=== PATIENT | female | born 1960 | race Caucasian/White ===

== ENCOUNTER 2022-02-19 21:32 | Inpatient (IN) | payer OTHER, SELFPAY ==
--- NOTE | ~2022-02-19 | XR_ITS ---
EXAMINATION: XR CHEST CLINICAL INFORMATION: TIA COMPARISON: None TECHNIQUE: Frontal view of the chest was obtained. FINDINGS: No significant abnormality is noted involving the heart, lungs, mediastinum, bony thorax or soft tissues. XR/XR chest 1V IMPRESSION: Unremarkable examination.
--- NOTE | ~2022-02-19 | MR_ITS ---
EXAMINATION: MR BRAIN WITHOUT CONTRAST CLINICAL INFORMATION: Stroke. COMPARISON: CT head from 02/19/2022. TECHNIQUE: MRI of the brain was obtained using routine sequences without contrast. FINDINGS: Potential punctate focus of restricted diffusion within the posterior limb of the right internal capsule. No additional restricted diffusion. No evidence of acute or chronic hemorrhagic products on heme-sensitive imaging. Scattered periventricular, deep white matter, and brainstem T2 FLAIR hyperintensities consistent with moderate underlying microangiopathy. Etat crible of the basal ganglia and brainstem. Proportional prominence of the ventricles and sulcal spaces without evidence of obstructive hydrocephalus. No abnormal mass effect. No midline shift. Normal appearance of the pituitary gland. Normal positioning of the cerebellar tonsils. Normal arterial and venous vascular flow voids are present. Normal, homogeneous marrow signal. Mild mucosal thickening of the paranasal sinuses. No signal abnormalities within the mastoids. MR/MR head/brain wo con IMPRESSION: 1. Potential punctate acute infarct within the posterior limb of the right internal capsule. Recommend correlation with laterality of symptoms. 2. No additional acute intracranial abnormalities. 3. Moderate underlying microangiopathy and generalized cerebral volume loss.
--- NOTE | ~2022-02-19 | CT_ITS ---
EXAMINATION: CT HEAD WITHOUT CONTRAST (STROKE PROTOCOL) CLINICAL INFORMATION: Stroke protocol. Transient ischemic attack. COMPARISON: None TECHNIQUE: Contiguous axial imaging was performed from the skull base to vertex without intravenous administration of contrast. This CT examination was performed using dose optimization techniques as appropriate, variously including the following: *Automated exposure control *Adjustment of mA and/or kV according to patient size (this includes techniques or standardized protocols for targeted exams where dose is matched to indication/reason for exam; i.e. extremities or head) *Use of iterative reconstruction technique DLP: 624 mGy-cm FINDINGS: No intracranial hemorrhage, extra-axial fluid collections, focal mass effect or midline shift. The abarca-white matter differentiation is maintained. No evidence of an acute major vascular territory infarction. There are relatively symmetric hypodensities of the basal ganglia that are likely due to widened perivascular spaces (i.e., etat crible). There is no significant parenchymal volume loss; no hydrocephalus. The brainstem and cerebellum are unremarkable. The visualized paranasal sinuses, mastoid air cells and middle ear cavities are well aerated. The orbits, globes and temporomandibular joints are unremarkable. CT/CT head for stroke IMPRESSION: No acute intracranial pathology. This critical result was discussed with Ladonna Casas at 10:08 PM on 02/19/2022. It was ascertained that the content and urgency of the report was understood at the time of direct communication.
--- NOTE | ~2022-02-19 | US_ITS ---
EXAMINATION: US EXTRACRANIAL CAROTID DUPLEX, BILATERAL CLINICAL INFORMATION: TIA COMPARISON: None TECHNIQUE: Real-time ultrasound and Doppler techniques (integrating B-mode 2-D vascular images, Doppler spectral analysis and color-flow Doppler imaging) were utilized to interrogate the extracranial carotid arteries, the vertebral arteries and proximal subclavian arteries bilaterally. The degree of stenosis is determined by criteria similar to NASCET. FINDINGS: Right Side: 1. There is no significant atherosclerotic plaque seen in the bifurcation/proximal ICA region. 2. The common carotid artery PSV proximally is 93 cm/s and distally 73 cm/s. 3. The proximal internal carotid artery velocities are 85 cm/s systolic and 31 cm/s diastolic. 4. The proximal external carotid artery PSV is 83 cm/s. 5. The vertebral artery shows antegrade flow. 6. The subclavian artery waveforms are normal. Left Side: 1. There is no significant atherosclerotic plaque seen in the bifurcation/proximal ICA region. 2. The common carotid artery PSV proximally is 117 cm/s and distally 70 cm/s. 3. The proximal internal carotid artery velocities are 75 cm/s systolic and 25 cm/s diastolic. 4. The proximal external carotid artery PSV is 88 cm/s. 5. The vertebral artery shows antegrade flow. 6. The subclavian artery waveforms are normal. US/US carotid duplex BI IMPRESSION: 1. RIGHT: Normal right internal carotid artery without atherosclerotic plaque or hemodynamically significant stenosis. 2. LEFT: Normal left internal carotid artery without atherosclerotic plaque or hemodynamically significant stenosis.
--- NOTE | ~2022-02-19 | FL_ITS ---
EXAMINATION: FL BARIUM SWALLOW CLINICAL INFORMATION: Dysphagia COMPARISON: None TECHNIQUE: Barium swallow examination is performed using fluoroscopic evaluation in addition to multiple fluoroscopic spot views. The patient is imaged both upright and prone and using both thick and thin sulfate along with effervescent granules. Barium tablet was also administered. Fluoroscopy time: 0.9 minutes DAP: 2.5 Gycm2 Images: 56 FINDINGS: The swallowing mechanism is normal. No aspiration or penetration is seen. There is a small sliding-type paraesophageal hernia. There also appears to be a small sliding-type hiatal hernia. There is mild gastroesophageal reflux. There is temporary stasis of the barium tablet at the GE junction. There is question of mild distal esophagitis. No mass or stricture is seen. Esophageal motility is normal. FL/FL barium swallow IMPRESSION: Small sliding-type paraesophageal and hiatal hernias. Gastroesophageal reflux. Question mild distal esophagitis.
--- NOTE | 2022-02-19 21:42 | ECG_ITS ---
Test Reason : STROKE Blood Pressure : / mmHG Vent. Rate : 092 BPM Atrial Rate : 092 BPM P-R Int : 130 ms QRS Dur : 076 ms QT Int : 350 ms P-R-T Axes : 040 030 035 degrees QTc Int : 432 ms Normal sinus rhythm Normal ECG No previous ECGs available Referred By: Ladonna Casas Electronically Signed By:ALDA COBB MD
[2022-02-19 21:43] LABS: Prothrombin Time Whole Bld POC 12.9 sec (11.1-13.5); ~PT, ~INR - Anti Coag Clinic 1.1 (0.9-1.1)
--- NOTE | 2022-02-19 21:43 | ED_ITS ---
HPI - Neuro Symptoms/Deficit General Chief Complaint: Stroke Stated Complaint: stroke alert Time Seen by Provider: 02/19/22 21:40 Source: patient and EMS Mode of arrival: EMS Limitations: no limitations History of Present Illness HPI Narrative: 61-year-old female came in by EMS as a stroke alert. Patient was noticed by her having a right-sided facial droop and was feeling numbness in the right hand, patient also felt that her speech is slightly off but still able to express herself and find the word or right patient been also suffering of dry mouth. noticed right facial droop around 20:15 before arrival to the hospital, patient otherwise do not sustain any weakness except numbness to the tip of her right hand fingers no numbness, no headache, no dizziness, no double vision, no blurry vision. Patient feels her symptoms has resolved with no facial droop anymore, but still feel her mouth is dry that is why her speech is off. 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 Patient appear anxious in the ED, decline chronic use of alcohol only use at occasions. Related Data Allergies Allergy/AdvReac Type Severity Reaction Status Date / Time sulfamethoxazole Allergy Intermediate rash Verified 02/19/22 21:41 [From Bactrim] trimethoprim [From Bactrim] Allergy Intermediate rash Verified 02/19/22 21:41 Review of Systems Review of Systems: All other systems are reviewed and are negative Constitutional: Reports as per HPI and Reports no additional constitutional complaints Eyes: Reports as per HPI and Reports no additional eye complaints Reports system reviewed and no additional complaints, except as documented Cardiovascular: Reports as per HPI and Reports no additional cardiovascular complaints Respiratory: Reports as per HPI and Reports no additional respiratory complaints Gastrointestinal: Reports as per HPI and Reports no additional gastrointestinal complaints Genitourinary: Reports no additional female genitourinary complaints Musculoskeletal: Reports no additional musculoskeletal complaints Skin/Breast: Reports system reviewed and no additional complaints, except as docu Psychiatric: Reports no additional psychiatric complaints Endocrine: Reports no additional endocrine complaints Hematologic/Lymphatic: Reports no additional hematologic/lymphatic complaints Allergic/Immunologic: Reports no additional allergic/immunologic complaints Reports system reviewed and no additional complaints, except as documented and Reports Abnormal speech present [facility] Social History Social History Alcohol intake: current Alcohol intake frequency: holidays/special occasions only Alcohol type: wine Smoked in Last 30 Days: No Use of substances other than those prescribed or required for medical reasons: No Advance Directives: No Physical Exam Vital Signs: Vital Signs: Last Vital Signs Temp 98.8 F 02/19/22 22:03 Pulse 99 02/19/22 22:52 Resp 19 02/19/22 22:52 BP 135/74 02/19/22 22:52 Pulse Ox 100 02/19/22 22:52 O2 Del Method 02/19/22 22:52 BMI result Body Mass Index 25.7 Vital signs have been reviewed as appeared to be correct. Blood pressure normal. Heart rate normal. Respiration rate normal. Temperature normal. Oxygen saturation normal. Appearance: Alert. Oriented X3. No acute distress. Head: Normal external exam. Normocephalic. Atraumatic. No Garrido signs noted. No raccoon eyes noted Eyes: PERRLA. EOMI. Conjunctiva and sclera normal. Eyelids normal. ENT: TM's Normal. Pharynx normal. Uvula midline. Moist mucous membranes. No trismus noted. No drooling noted. No muffled voice noted. Neck: Normal inspection. Neck supple. FROM. No adenopathy. Thyroid Normal. No meningeal signs. No neck mass noted. CVS: Normal heart rate and rhythm. Heart sound normal. No murmurs noted. Pulses normal throughout. Respiratory: No respiratory distress. Painless inspiration. Breath sounds jaylon l. No wheezes/rales/rhonchi noted. Chest nontender. No accessory muscle usage noted or decreased air movement noted. Abdomen: Soft and nontender. Bowel sounds normal in all 4 quadrants. No distention noted. No organomegaly noted. No visible injury noted. Back: No CVA tenderness. Full range of motion noted. Skin: Skin warm and dry. Normal skin color. Normal skin turgor. No rashes/lesions/lacerations noted. Extremities: No lower extremity edema. Extremities exhibit normal range of motion. Extremities nontender. Neuro: Oriented X 3. Cranial nerve exam: II-XII are grossly intact No motor deficit. No sensory deficit. Reflexes normal. Course Course Course Narrative: 61-year-old female presented with right facial droop and aphasia witnessed by her symptoms are all resolved on arrival to the ED. patient has been complaining of her mouth being dry which could be secondary to the chronic dysphagia that the patient had workup for at [facility] and schedule for further upper endoscopy in 2 months which can cause difficulty speaking but will not explain the right facial droop that was seen by her and result now. Will admit the patient for further neurological evaluation. MDM - Neuro Symptoms/Deficit Lab Data Attestation: I reviewed the patient's lab results. Result diagrams: 02/19/22 21:58 02/19/22 21:58 Labs: Lab Results 02/19/22 02/19/22 02/19/22 Range/Units 21:36 21:36 21:58 WBC 3.4 L (4.8-10.8) X10*3/uL RBC 4.42 (4.20-5.50) X10*6/uL Hgb 13.7 (12.0-16.0) g/dl Hct 39.0 (37.0-47.0) % MCV 88.2 (80.0-98.0) fL MCH 31.0 (27.0-33.0) pg MCHC 35.1 H (31.0-35.0) g/dl RDW 11.7 (11.0-16.0) % Plt Count 245 (160-400) X10*3/uL MPV 10.0 (9.4-12.3) fL Immature Gran % (Auto) 0.0 (0.0-0.4) % Neut % (Auto) 47.0 (45-73) % Lymph % (Auto) 42.2 H (20-40) % [place]man % (Auto) 7.3 (2-11) % Eos % (Auto) 3.2 (0-4) % Baso % (Auto) 0.3 (0-2) % Lymph # (Auto) 1.5 (1.2-4.9) X10*3/uL [place]utsman # (Auto) 0.3 (0.1-1.2) X10*3/uL Eos # (Auto) 0.1 (0.0-0.4) X10*3/uL Baso # (Auto) 0.0 (0.0-0.2) X10*3/uL Abs Immat Gran (auto) 0.00 (0.00-0.03) X10*3/uL Absolute Neuts (auto) 1.6 L (2.0-8.3) x10*3/uL Absolute Nucleated RBC 0.000 (0.0-0.012) X10*3/uL Nucleated RBC % (auto) 0.0 (0.0-0.2) /100WBC PT (10.0-13.1) SEC Whole Blood PT 12.9 (11.1-13.5) sec INR (0.9-1.1) Whole Blood INR 1.1 (0.9-1.1) APTT (26.0-36.4) SEC Sodium (135-145) mmol/L Potassium (3.3-5.1) mmol/L Chloride (96-108) mmol/L Carbon Dioxide (22-29) mmol/L Anion Gap (12-20) BUN (9-16) mg/dL Creatinine (0.5-1.4) mg/dL Estim Creat Clear Calc Estimated GFR POC Glucose 98 (60-115) mg/dL Random Glucose (60-115) mg/dL Calcium (8.4-10.2) mg/dL Total Creatine Kinase (26-140) U/L Troponin I High Sens (<3.5-17.0) ng/L COVID-19 (SAEID) (Negative) COVID-19 Clin Com 02/19/22 02/19/22 02/19/22 Range/Units 21:58 21:58 21:58 WBC (4.8-10.8) X10*3/uL RBC (4.20-5.50) X10*6/uL Hgb (12.0-16.0) g/dl Hct (37.0-47.0) % MCV (80.0-98.0) fL MCH (27.0-33.0) pg MCHC (31.0-35.0) g/dl RDW (11.0-16.0) % Plt Count (160-400) X10*3/uL MPV (9.4-12.3) fL Immature Gran % (Auto) (0.0-0.4) % Neut % (Auto) (45-73) % Lymph % (Auto) (20-40) % Stutsman % (Auto) (2-11) % Eos % (Auto) (0-4) % Baso % (Auto) (0-2) % Lymph # (Auto) (1.2-4.9) X10*3/uL [place] # (Auto) (0.1-1.2) X10*3/uL Eos # (Auto) (0.0-0.4) X10*3/uL Baso # (Auto) (0.0-0.2) X10*3/uL Abs Immat Gran (auto) (0.00-0.03) X10*3/uL Absolute Neuts (auto) (2.0-8.3) x10*3/uL Absolute Nucleated RBC (0.0-0.012) X10*3/uL Nucleated RBC % (auto) (0.0-0.2) /100WBC PT 11.4 (10.0-13.1) SEC Whole Blood PT (11.1-13.5) sec INR 1.0 (0.9-1.1) Whole Blood INR (0.9-1.1) APTT 40.8 H (26.0-36.4) SEC Sodium 141 (135-145) mmol/L Potassium 3.9 (3.3-5.1) mmol/L Chloride 108 (96-108) mmol/L Carbon Dioxide 21 L (22-29) mmol/L Anion Gap 16 (12-20) BUN 11 (9-16) mg/dL Creatinine 0.88 (0.5-1.4) mg/dL Estim Creat Clear Calc 63.6 Estimated GFR > 60 POC Glucose (60-115) mg/dL Random Glucose 125 H (60-115) mg/dL Calcium 8.8 (8.4-10.2) mg/dL Total Creatine Kinase 30 (26-140) U/L Troponin I High Sens < 3.5 (<3.5-17.0) ng/L COVID-19 (SAEID) (Negative) COVID-19 Clin Com 02/19/22 Range/Units 21:58 WBC (4.8-10.8) X10*3/uL RBC (4.20-5.50) X10*6/uL Hgb (12.0-16.0) g/dl Hct (37.0-47.0) % MCV (80.0-98.0) fL MCH (27.0-33.0) pg MCHC (31.0-35.0) g/dl RDW (11.0-16.0) % Plt Count (160-400) X10*3/uL MPV (9.4-12.3) fL Immature Gran % (Auto) (0.0-0.4) % Neut % (Auto) (45-73) % Lymph % (Auto) (20-40) % [place]utsman % (Auto) (2-11) % Eos % (Auto) (0-4) % Baso % (Auto) (0-2) % Lymph # (Auto) (1.2-4.9) X10*3/uL [place] # (Auto) (0.1-1.2) X10*3/uL Eos # (Auto) (0.0-0.4) X10*3/uL Baso # (Auto) (0.0-0.2) X10*3/uL Abs Immat Gran (auto) (0.00-0.03) X10*3/uL Absolute Neuts (auto) (2.0-8.3) x10*3/uL Absolute Nucleated RBC (0.0-0.012) X10*3/uL Nucleated RBC % (auto) (0.0-0.2) /100WBC PT (10.0-13.1) SEC Whole Blood PT (11.1-13.5) sec INR (0.9-1.1) Whole Blood INR (0.9-1.1) APTT (26.0-36.4) SEC Sodium (135-145) mmol/L Potassium (3.3-5.1) mmol/L Chloride (96-108) mmol/L Carbon Dioxide (22-29) mmol/L Anion Gap (12-20) BUN (9-16) mg/dL Creatinine (0.5-1.4) mg/dL Estim Creat Clear Calc Estimated GFR POC Glucose (60-115) mg/dL Random Glucose (60-115) mg/dL Calcium (8.4-10.2) mg/dL Total Creatine Kinase (26-140) U/L Troponin I High Sens (<3.5-17.0) ng/L COVID-19 (SAEID) Negative (Negative) COVID-19 Clin Com See Note Imaging Data Chest x-ray: Attestation: I personally reviewed and interpreted this imaging study as follows: Radiologist's impression: Unremarkable examination. CT scan - head: Attestation: I personally reviewed and interpreted this imaging study as follows: Radiologist's impression: No acute intracranial pathology. ECG Data Attestation: I personally reviewed and interpreted this ECG as follows: Interpretation: Normal sinus rhythm at 92 beats per minute, normal axis deviation, normal intervals, no ST-T changes. NIH Stroke Scale Level of Consciousness: Alert Level of Consciousness Questions: Answers both questions correctly Level of Consciousness Commands: Performs both tasks correctly Best Gaze: Normal Visual: No visual loss Facial Palsy: Normal Motor Arm (Right): No drift Motor Arm (Left): No drift Motor Leg (Right): No drift Motor Leg (Left): No drift Limb Ataxia: Absent Sensory: Normal Best Language: No aphasia Dysarthia: Normal Extinction and Inattention: No abnormality Score: 0 Discharge Plan Discharge Clinical Impression: Transient cerebral ischemia Patient Disposition: Admitted As Inpatient
[2022-02-19 21:44] VITALS: BMI 25.7
[2022-02-19 21:44] LABS: Glucose, Whole Blood 98 mg/dL (60-115)
[2022-02-19 22:03] VITALS: BP 165/97; PULSE 97; RESP 25; TEMP 37.1; O2SAT 100
[2022-02-19 22:04] LABS: MANUAL DIFF FLAG NO
[2022-02-19 22:06] LABS: Basophils Percent Auto 0.3 % (0-2); Eosinophils Absolute Auto 0.1 X10*3/uL (0.0-0.4); Eosinophils Percent Auto 3.2 % (0-4); Hemoglobin 13.7 g/dl (12.0-16.0); Lymphocytes Absolute Auto 1.5 X10*3/uL (1.2-4.9); Lymphocytes Percent Auto 42.2 % (20-40); Mean Corpuscular HGB Conc 35.1 g/dl (31.0-35.0); Mean Corpuscular Volume 88.2 fL (80.0-98.0); Monocytes Absolute Auto 0.3 X10*3/uL (0.1-1.2); Monocytes Percent Auto 7.3 % (2-11); Neutrophils Absolute Auto 1.6 x10*3/uL (2.0-8.3); Platelet Count 245 X10*3/uL (160-400); Red Blood Count 4.42 X10*6/uL (4.20-5.50); Red Cell Distribution Width 11.7 % (11.0-16.0); White Blood Count 3.4 X10*3/uL (4.8-10.8)
[2022-02-19 22:11] LABS: Prothrombin Time 11.4 SEC (10.0-13.1)
[2022-02-19 22:14] LABS: Partial Thromboplastin Time 40.8 SEC (26.0-36.4)
[2022-02-19 22:19] LABS: Anion Gap 16 (12-20); Blood Urea Nitrogen 11 mg/dL (9-16); Calcium 8.8 mg/dL (8.4-10.2); Carbon Dioxide 21 mmol/L (22-29); Chloride 108 mmol/L (96-108); Creatinine Clr Calc Pharmacy 63.6; Estimated Glomerular Filt Rate > 60; Glucose Random 125 mg/dL (60-115); Potassium 3.9 mmol/L (3.3-5.1); Sodium 141 mmol/L (135-145)
[2022-02-19 22:20] LABS: COVID-19 Test Negative (Negative)
[2022-02-19 22:25] LABS: Troponin-I High Sensitivity < 3.5 ng/L (<3.5-17.0)
[2022-02-19 22:32] LABS: Stroke Lab Use COMPLETE
--- OUTSIDE RECORDS SUMMARY | 2022-02-19 22:35 | XMS_ITS | Continuity of Care Document ---
:1960 Author Organization [facility] Address [address] [place] [address]- Care Team Providers Name Role Phone Conrado Baldwin MD Primary Care Physician Encounter [facility] Date(s): 03/27/20 - 04/26/20 [facility] [address] [place], [place] [address] Allergies, Adverse Reactions, Alerts Substance Reaction Severity Status pravastatin abd epig pain Active Bactrim nausea Active Immunizations Given and Recorded Vaccine Date Status Refusal Reason influenza virus vaccine, inactivated 02/24/13 Given Tet/Diphth/Acel, Pertussis (oldterm) 02/24/13 Given Hepatitis B Vaccine (old term)1 01/05/06 Given tetanus-diphtheria toxoids (Td) 01/05/06 Given 1Admin Note: PT RECIEVED SERIES AT WORK Medications Calcium (as carbonate)-vitamin D 500 mg-400 intl units oral tablet, chewable 1 tablet, Chew, Daily, # 60 tablet, 0 Refills, Maintenance, 06/27/11 10:07:37, Chew Tablet Start Date: 06/27/11 Status: Orderedlisinopril 5 mg oral tablet 5 mg, 1, tablet, By Mouth, Daily, # 90 tablet, Refills 3, Tot. Refills 3, Maintenance, 04/15/20 14:01:00 EST, Route to Pharmacy Electronically, [facility]/pharmacy #[id number], Pharmacy Never Received Script From 06-11-2015, 166, cm, 06/09/19 8:24:00 EST, Height Start Date: 04/15/20 Status: OrderedmetroNIDAZOLE 0.75% topical cream 1 application, Topically, 2 times a day, # 45 Gm, 3 Refills, Maintenance, 03/29/20 10:37:00 EST, Cream, [facility]/pharmacy [facility][id number], 1 application Topically 2 times a day, 166, cm, 06/09/19 8:24:00 EST, Height Start Date: 03/29/20 Status: Ordered Problem List Condition Effective Dates Status Health Status Informant Acne rosacea(Confirmed) Active Acne rosacea, erythematous 05/06/13 Active telangiectatic type(Confirmed) Narrow angle glaucoma Active suspect(Confirmed) Macular degeneration(Confirmed) Active Depression(Confirmed) Active FH: Cancer - * breast: mother Active grandmothers two maternal couslins(Confirmed) FH: Depression-both parents(Confirmed) Active FH: Diabetes mellitus P 02/21/08 Active grandfather(Confirmed) FH: Hypertension(Confirmed) Active Hyperlipidemia LDL goal 05/06/13 Active <130(Confirmed) Hypertension(Confirmed) 02/24/13 Active depression(Confirmed) Active Repair of inguinal Active hernia-left(Confirmed) Social History Social History Type Response Smoking Status Never smoker entered on: 05/06/13 Sex
--- OUTSIDE RECORDS SUMMARY | 2022-02-19 22:35 | XMS_ITS | Continuity of Care Document ---
:1960 Author Organization [facility] Address [address] [place] [address]- Care Team Providers Name Role Phone Conrado Baldwin MD Primary Care Physician Encounter [facility] Date(s): 10/23/21 - 10/30/21 [facility] [address] [place] [address]- Attending Physician: Conrado Baldwin MD Allergies, Adverse Reactions, Alerts Substance Reaction Severity Status pravastatin abd epig pain Active Bactrim nausea Active Immunizations Given and Recorded Vaccine Date Status Refusal Reason tetanus/diphtheria/pertussis, acel(Tdap)1 04/02/21 Given SARS-CoV-2 (COVID-19) mRNA BNT-162b2 vac 03/10/21 Recorde d SARS-CoV-2 (COVID-19) mRNA BNT-162b2 vac 08/08/20 Given SARS-CoV-2 (COVID-19) mRNA BNT-162b2 vac 07/18/20 Given influenza virus vaccine, inactivated 02/07/21 Recorded influenza virus vaccine, inactivated 02/24/13 Given Tet/Diphth/Acel, Pertussis (oldterm) 02/24/13 Given Hepatitis B Vaccine (old term)2 01/05/06 Given tetanus-diphtheria toxoids (Td) 01/05/06 Given 1Result Comment: [id number] Note: PT RECIEVED SERIES AT WORK Medications Calcium (as carbonate)-vitamin D 500 mg-400 intl units oral tablet, chewable 1 tablet, Chew, Daily, # 60 tablet, 0 Refills, Maintenance, 06/27/11 10:07:37, Chew Tablet Start Date: 06/27/11 Status: Orderedcyanocobalamin 1000 mcg oral tablet 1,000 mcg, 1, tablet, By Mouth, Daily, # 30 tablet, Refills 0, Tot. Refills 0, Maintenance, 10/24/2221:22:00 EDT, Do Not Route, Partial fill upon patient request if the prescription is for a schedule II opioid drug. Start Date: 10/24/21 Status: Orderedlisinopril 5 mg oral tablet 5 mg, 1, tablet, By Mouth, Daily, # 90 tablet, Refills 3, Tot. Refills 3, Maintenance, 04/02/21 15:18:00 EST, [id number] Never Received Script From 06-11-2015, 166, cm, 04/02/21 14:58:00 EST, Height Start Date: 04/02/21 Status: OrderedmetroNIDAZOLE 0.75% topical cream 1 application, Topically, 2 times a day, # 45 Gm, 3 Refills, Maintenance, 04/02/21 15:18:00 EST, Cream, [facility]/pharmacy #[id number], 1 application Topically 2 times a day, 166, cm, 04/02/21 14:58:00 EST, Height Start Date: 04/02/21 Status: Orderedmirtazapine 15 mg oral tablet 1 tablet = 15 mg, By Mouth, Daily at bedtime, # 30 tablet, 5 Refills, Maintenance, 10/23/21 13:44:00EDT, Tablet, [facility]/pharmacy #[id number], Partial fill upon patient request if the prescription is for a schedule II opioid drug., 162.6, cm, 10/08/21 10:31:00... Start Date: 10/23/21 Status: Orderedraloxifene 60 mg oral tablet 1 tablet = 60 mg, By Mouth, Daily, # 30 tablet, 3 Refills, Maintenance, 08/07/21 13:28:00 EDT, Tablet, [facility]/pharmacy #[id number], Partial fill upon patient request if the prescription is for a schedule II opioid drug., 168, cm, 08/07/21 13:04:00 EDT, Height,... 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) Narrow angle glaucoma Active suspect(Confirmed) B12 deficiency(Confirmed) Active Macular degeneration(Confirmed) Active Depression(Confirmed) Active Family history of breast cancer in Active mother, sister, grandmothers two maternal couslins(Confirmed) FH: Depression-both parents(Confirmed) Active FH: Diabetes mellitus P 02/21/08 Active grandfather(Confirmed) FH: Hypertension(Confirmed) Active Personal history of colonic 10/09/21 Active polyps(Confirmed) Hyperlipidemia LDL goal 05/06/13 Active <130(Confirmed) Hypertension(Confirmed) 02/24/13 Active Anxiety and depression(Confirmed) Active depression(Confirmed) Active Repair of inguinal Active hernia-left(Confirmed) Social History Social History Type Response Smoking Status Never smoker entered on: 05/06/13 Sex
--- OUTSIDE RECORDS SUMMARY | 2022-02-19 22:35 | XMS_ITS | Continuity of Care Document ---
:1960 Author Organization [facility] Address [address] [place] [address]- Care Team Providers Name Role Phone Nicolasa DAVENPORT, Conrado Cleary Primary Care Physician Encounter [facility] Date(s): 10/09/21 - 11/08/21 [facility] [address] [place], [place] [address] Allergies, Adverse Reactions, Alerts Substance Reaction [...] tetanus-diphtheria toxoids (Td) 01/05/06 Given 1Result Comment: [id number] Note: PT RECIEVED SERIES AT WORK Medications [...] 04/02/21 15:18:00 EST, Route to Pharmacy Electronically, [facility]/pharmacy #[id number], Pharmacy Never Received Script From 06-11-2015, 166, cm, 04/02/21 14:58:00 EST, Height Start Date: 04/02/21 Status: OrderedmetroNIDAZOLE 0.75% topical cream 1 application, Topically, 2 times a day, # 45 Gm, 3 Refills, Maintenance, 04/02/21 15:18:00 EST, Cream, [facility]/pharmacy #[id number], 1 application Topically 2 times a day, 166, cm, 04/02/21 14:58:00 EST, Height Start Date: 04/02/21 Status: Orderedmirtazapine 15 mg oral tablet 1 tablet = 15 mg, By Mouth, Daily at bedtime, # 30 tablet, 5 Refills, Maintenance, 10/23/21 13:44:00EDT, Tablet, [facility]/pharmacy #[id number], Partial fill upon patient request if the prescription is for a schedule II opioid drug., 162.6, cm, 10/08/21 10:31:00... Start Date: 10/23/21 Status: Orderedraloxifene 60 mg oral tablet 1 tablet = 60 mg, By Mouth, Daily, # 30 tablet, 3 Refills, Maintenance, 08/07/21 13:28:00 EDT, Tablet, [facility]/pharmacy #[id number], Partial fill upon patient request if [...]
--- OUTSIDE RECORDS SUMMARY | 2022-02-19 22:35 | XMS_ITS | Continuity of Care Document ---
:1960 Author Organization [facility] Address [address] [place] [address]- Care Team Providers Name Role Phone Conrado Baldwin MD Primary Care Physician Encounter [facility] Date(s): 06/12/20 - 07/12/20 [facility] [address] [place] [address]- Attending Physician: Admtr, Kody Admitting Physician: Admtr, [id number] Referring Physician: Admtr, [id number] Allergies, Adverse Reactions, Alerts Substance Reaction Severity [...] 04/15/20 14:01:00 EST, Route to Pharmacy Electronically, [facility]/pharmacy #[id number], Pharmacy Never Received Script From 06-11-2015, 166, [...]
--- OUTSIDE RECORDS SUMMARY | 2022-02-19 22:35 | XMS_ITS | Continuity of Care Document ---
:1960 Author Organization [facility] Address [address] [place] [address]- Care Team Providers Name Role Phone Conrado Baldwin MD Primary Care Physician Encounter [facility] Date(s): 04/11/21 - 05/11/21 [facility] [address] [place] [address] [place] Allergies, Adverse Reactions, Alerts Substance Reaction Severity [...] tetanus-diphtheria toxoids (Td) 01/05/06 Given 1Result Comment: [id number] Note: PT RECIEVED SERIES AT WORK Medications [...] 04/02/21 15:18:00 EST, Route to Pharmacy Electronically, [facility]/pharmacy #[id number], Pharmacy Never Received Script From 06-11-2015, 166, cm, 04/02/21 14:58:00 EST, Height Start Date: 04/02/21 Status: OrderedmetroNIDAZOLE 0.75% topical cream 1 application, Topically, 2 times a day, # 45 Gm, 3 Refills, Maintenance, 04/02/21 15:18:00 EST, Cream, [facility]/pharmacy #[id number], 1 application Topically 2 times a day, 166, cm, 04/02/21 14:58:00 EST, Height Start Date: 04/02/21 Status: OrderedNuLYTELY with Flavor Packs oral powder for reconstitution 240 mL, By Mouth, Every 10 minutes, Split prep method CAN SUBSTITUTE WITH ANY PEG 3350 SOLUTION AVAILABLE, # 1 each, 0 Refills, Acute 10/08/21 8:00:00 EDT, 10/07/21 17:00:00 EDT, REC Powder, [facility]/pharmacy #[id number], test date 10/08/21, 240 mL By Mouth Ever... Start Date: 10/07/21 Stop Date: 10/08/21 Status: Ordered Problem List Condition Effective Dates [...]
--- OUTSIDE RECORDS SUMMARY | 2022-02-19 22:35 | XMS_ITS | Continuity of Care Document ---
:1960 Author Organization [facility] Address [address] [place] [address]- Care Team Providers Name Role Phone Nicolasa DAVENPORT, Conrado Cleary Primary Care Physician Encounter [facility] Date(s): 06/19/21 - 07/19/21 [facility] [address] [place] [address]- Allergies, Adverse Reactions, Alerts Substance Reaction Severity [...] tetanus-diphtheria toxoids (Td) 01/05/06 Given 1Result Comment: [id number] Note: PT RECIEVED SERIES AT WORK Medications [...] 04/02/21 15:18:00 EST, Route to Pharmacy Electronically, [facility]/pharmacy #[id number], Pharmacy Never Received Script From 06-11-2015, 166, cm, 04/02/21 14:58:00 EST, Height Start Date: 04/02/21 Status: OrderedmetroNIDAZOLE 0.75% topical cream 1 application, Topically, 2 times a day, # 45 Gm, 3 Refills, Maintenance, 04/02/21 15:18:00 EST, Cream, [facility]/pharmacy #[id number], 1 application Topically 2 times a day, 166, cm, 04/02/21 14:58:00 EST, Height Start Date: 04/02/21 Status: Ordered Problem List Condition Effective Dates Status Health Status Informant Acne rosacea(Confirmed) Active Acne rosacea, erythematous 05/06/13 Active telangiectatic type(Confirmed) 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
--- OUTSIDE RECORDS SUMMARY | 2022-02-19 22:35 | XMS_ITS | Continuity of Care Document ---
:1960 Author Organization [facility] Address [address] [place] [address]- Care Team Providers Name Role Phone Nicolasa DAVENPORT, Conrado Cleary Primary Care Physician [place] [facility] [place] 04/11/21 - 05/11/21 [facility] [address] [place], [place] [address] Allergies, Adverse Reactions, Alerts Substance Reaction [...] tetanus-diphtheria toxoids (Td) 01/05/06 Given 1Result Comment: [id number] Note: PT RECIEVED SERIES AT WORK Medications [...] 04/02/21 15:18:00 EST, Route to Pharmacy Electronically, [facility]/pharmacy #[id number], Pharmacy Never Received Script From 06-11-2015, 166, cm, 04/02/21 14:58:00 EST, Height Start Date: 04/02/21 Status: OrderedmetroNIDAZOLE 0.75% topical cream 1 application, Topically, 2 times a day, # 45 Gm, 3 Refills, Maintenance, 04/02/21 15:18:00 EST, Cream, [facility]/pharmacy #[id number], 1 application Topically 2 times a day, 166, cm, 04/02/21 14:58:00 EST, Height Start Date: 04/02/21 Status: OrderedNuLYTELY with Flavor Packs oral powder for reconstitution 240 mL, By Mouth, Every 10 minutes, Split prep method CAN SUBSTITUTE WITH ANY PEG 3350 SOLUTION AVAILABLE, # 1 each, 0 Refills, Acute 10/08/21 8:00:00 EDT, 10/07/21 17:00:00 EDT, REC Powder, [facility]/pharmacy #[id number], test date 10/08/21, 240 mL By [...]
--- OUTSIDE RECORDS SUMMARY | 2022-02-19 22:35 | XMS_ITS | Continuity of Care Document ---
:1960 Author Organization [facility] Address [address] [place] [address]- Care Team Providers Name Role Phone Nicolasa DAVENPORT, Conrado Cleary Primary Care Physician Encounter [facility] [place] Date(s): 04/09/21 - 05/09/21 [facility] [address] [place], [place] [address] Allergies, Adverse Reactions, Alerts Substance Reaction Severity [...] tetanus-diphtheria toxoids (Td) 01/05/06 Given 1Result Comment: [id number] Note: PT RECIEVED SERIES AT WORK Medications [...] 04/02/21 15:18:00 EST, Route to Pharmacy Electronically, [facility]/pharmacy #[id number], Pharmacy Never Received Script From 06-11-2015, 166, cm, 04/02/21 14:58:00 EST, Height Start Date: 04/02/21 Status: OrderedmetroNIDAZOLE 0.75% topical cream 1 application, Topically, 2 times a day, # 45 Gm, 3 Refills, Maintenance, 04/02/21 15:18:00 EST, Cream, [facility]/pharmacy #[id number], 1 application Topically 2 times a day, 166, cm, 04/02/21 14:58:00 EST, Height Start Date: 04/02/21 Status: OrderedNuLYTELY with Flavor Packs oral powder for reconstitution 240 mL, By Mouth, Every 10 minutes, Split prep method CAN SUBSTITUTE WITH ANY PEG 3350 SOLUTION AVAILABLE, # 1 each, 0 Refills, Acute 10/08/21 8:00:00 EDT, 10/07/21 17:00:00 EDT, REC Powder, [facility]/pharmacy #[id number], test date 10/08/21, 240 mL [...]
--- OUTSIDE RECORDS SUMMARY | 2022-02-19 22:35 | XMS_ITS | Continuity of Care Document ---
:1960 Author Organization [facility] Address [address] [place] [address]- Care Team Providers Name Role Phone Nicolasa DAVENPORT, Conrado Cleary Primary Care Physician [place] [facility] [place] 04/17/21 - 05/17/21 [facility] [address] [place], [place] [address] Allergies, Adverse Reactions, Alerts Substance Reaction [...] tetanus-diphtheria toxoids (Td) 01/05/06 Given 1Result Comment: [id number] Note: PT RECIEVED SERIES AT WORK Medications [...] 15:18:00 EST, Route to Pharmacy Electronically, [facility]/pharmacy #[id number], Pharmacy Never Received Script From 06-11-2015, 166, cm, 04/02/21 14:58:00 EST, Height Start Date: 04/02/21 Status: OrderedmetroNIDAZOLE 0.75% topical cream 1 application, Topically, 2 times a day, # 45 Gm, 3 Refills, Maintenance, 04/02/21 15:18:00 EST, Cream, [facility]/pharmacy #[id number], 1 application Topically 2 times a day, 166, cm, 04/02/21 14:58:00 EST, Height Start Date: 04/02/21 Status: OrderedNuLYTELY with Flavor Packs oral powder for reconstitution 240 mL, By Mouth, Every 10 minutes, Split prep method CAN SUBSTITUTE WITH ANY PEG 3350 SOLUTION AVAILABLE, # 1 each, 0 Refills, Acute 10/08/21 8:00:00 EDT, 10/07/21 17:00:00 EDT, REC Powder, [facility]/pharmacy #[id number], test date 10/08/21, 240 mL By [...]
--- OUTSIDE RECORDS SUMMARY | 2022-02-19 22:35 | XMS_ITS | Continuity of Care Document ---
:1960 Author Organization [facility] Address [address] [place] [address]- Care Team Providers Name Role Phone Nicolasa DAVENPORT, Conrado Cleary Primary Care Physician Encounter [facility] Date(s): 11/04/21 - 12/04/21 [facility] [address] [place], [place] [address] Allergies, Adverse Reactions, Alerts Substance Reaction [...] tetanus-diphtheria toxoids (Td) 01/05/06 Given 1Result Comment: [id number] Note: PT RECIEVED SERIES AT WORK Medications [...] 04/02/21 15:18:00 EST, Route to Pharmacy Electronically, [facility]/pharmacy #[id number], Pharmacy Never Received Script From 06-11-2015, 166, cm, 04/02/21 14:58:00 EST, Height Start Date: 04/02/21 Status: OrderedmetroNIDAZOLE 0.75% topical cream 1 application, Topically, 2 times a day, # 45 Gm, 3 Refills, Maintenance, 04/02/21 15:18:00 EST, Cream, [facility]/pharmacy #[id number], 1 application Topically 2 times a day, 166, cm, 04/02/21 14:58:00 EST, Height Start Date: 04/02/21 Status: Orderedmirtazapine 15 mg oral tablet 1 tablet = 15 mg, By Mouth, Daily at bedtime, # 30 tablet, 5 Refills, Maintenance, 10/23/21 13:44:00EDT, Tablet, [facility]/pharmacy #[id number], Partial fill upon patient request if the prescription is for a schedule II opioid drug., 162.6, cm, 10/08/21 10:31:00... Start Date: 10/23/21 Status: Orderedraloxifene 60 mg oral tablet 1 tablet = 60 mg, By Mouth, Daily, # 30 tablet, 3 Refills, Maintenance, 08/07/21 13:28:00 EDT, Tablet, [facility]/pharmacy #[id number], Partial fill upon patient request if [...]
--- OUTSIDE RECORDS SUMMARY | 2022-02-19 22:35 | XMS_ITS | Continuity of Care Document ---
:1960 Author Organization [facility] Address [address] [place] [address]- Care Team Providers Name Role Phone Nicolasa DAVENPORT, Conrado Cleary Primary Care Physician [place] [facility] [place](s): 10/25/21 - 11/24/21 [facility] [address] [place] [address]- Attending Physician: Kody Hicks Admitting Physician: Kody Hicks Referring Physician: AdmtrKody Allergies, Adverse Reactions, Alerts Substance Reaction Severity [...] tetanus-diphtheria toxoids (Td) 01/05/06 Given 1Result Comment: [id number] Note: PT RECIEVED SERIES AT WORK Medications Calcium (as carbonate)-vitamin D 500 mg-400 intl units oral tablet, chewable 1 tablet, Chew, Daily, # 60 tablet, 0 Refills, Maintenance, 06/27/11 10:07:37, Chew Tablet Start Date: 3/16/12 Status: Orderedcyanocobalamin 1000 mcg oral tablet 1,000 [...] 04/02/21 15:18:00 EST, Route to Pharmacy Electronically, [facility]/pharmacy #[id number], Pharmacy Never Received Script From 06-11-2015, 166, cm, 04/02/21 14:58:00 EST, Height Start Date: 04/02/21 Status: OrderedmetroNIDAZOLE 0.75% topical cream 1 application, Topically, 2 times a day, # 45 Gm, 3 Refills, Maintenance, 04/02/21 15:18:00 EST, Cream, [facility]/pharmacy #[id number], 1 application Topically 2 times a day, 166, cm, 04/02/21 14:58:00 EST, Height Start Date: 04/02/21 Status: Orderedmirtazapine 15 mg oral tablet 1 tablet = 15 mg, By Mouth, Daily at bedtime, # 30 tablet, 5 Refills, Maintenance, 10/23/21 13:44:00EDT, Tablet, [facility]/pharmacy #[id number], Partial fill upon patient request if the prescription is for a schedule II opioid drug., 162.6, cm, 10/08/21 10:31:00... Start Date: 10/23/21 Status: Orderedraloxifene 60 mg oral tablet 1 tablet = 60 mg, By Mouth, Daily, # 30 tablet, 3 Refills, Maintenance, 08/07/21 13:28:00 EDT, Tablet, [facility]/pharmacy #[id number], Partial fill upon patient request if [...]
--- OUTSIDE RECORDS SUMMARY | 2022-02-19 22:35 | XMS_ITS | Continuity of Care Document ---
:1960 Author Organization [facility] Address [address] [place] [address]- Care Team Providers Name Role Phone Nicolasa DAVENPORT, Conrado Cleary Primary Care Physician Encounter [facility] Date(s): 11/04/21 - 12/04/21 [facility] [address] [place], [place] [address] Allergies, Adverse Reactions, Alerts Substance Reaction Severity [...] tetanus-diphtheria toxoids (Td) 01/05/06 Given 1Result Comment: [id number] Note: PT RECIEVED SERIES AT WORK Medications [...] 04/02/21 15:18:00 EST, Route to Pharmacy Electronically, [facility]/pharmacy #[id number], Pharmacy Never Received Script From 06-11-2015, 166, cm, 04/02/21 14:58:00 EST, Height Start Date: 04/02/21 Status: OrderedmetroNIDAZOLE 0.75% topical cream 1 application, Topically, 2 times a day, # 45 Gm, 3 Refills, Maintenance, 04/02/21 15:18:00 EST, Cream, [facility]/pharmacy #[id number], 1 application Topically 2 times a day, 166, cm, 04/02/21 14:58:00 EST, Height Start Date: 04/02/21 Status: Orderedmirtazapine 15 mg oral tablet 1 tablet = 15 mg, By Mouth, Daily at bedtime, # 30 tablet, 5 Refills, Maintenance, 10/23/21 13:44:00EDT, Tablet, [facility]/pharmacy #[id number], Partial fill upon patient request if the prescription is for a schedule II opioid drug., 162.6, cm, 10/08/21 10:31:00... Start Date: 10/23/21 Status: Orderedraloxifene 60 mg oral tablet 1 tablet = 60 mg, By Mouth, Daily, # 30 tablet, 3 Refills, Maintenance, 08/07/21 13:28:00 EDT, Tablet, [facility]/pharmacy #[id number], Partial fill upon patient request if [...]
--- OUTSIDE RECORDS SUMMARY | 2022-02-19 22:36 | XMS_ITS | Continuity of Care Document ---
:1960 Author Organization [facility] Address [address] [place] [address]- Care Team Providers Name Role Phone Nicolasa DAVENPORT, Conrado Cleary Primary Care Physician Encounter [facility] [place] Date(s): 01/07/21 - 02/06/21 [facility] [address] [place] [address]- Allergies, Adverse Reactions, Alerts Substance Reaction Severity Status pravastatin abd epig pain Active Bactrim nausea Active Immunizations Given and Recorded Vaccine Date Status Refusal Reason SARS-CoV-2 (COVID-19) mRNA BNT-162b2 vac 08/08/20 Given SARS-CoV-2 (COVID-19) mRNA BNT-162b2 vac 07/18/20 Given influenza virus vaccine, inactivated 02/24/13 Given Tet/Diphth/Acel, [...] 04/15/20 14:01:00 EST, Route to Pharmacy Electronically, [facility]/pharmacy #[id number], Pharmacy Never Received Script From 06-11-2015, 166, [...]
--- OUTSIDE RECORDS SUMMARY | 2022-02-19 22:36 | XMS_ITS | Continuity of Care Document ---
:1960 Author Organization [facility] Address [address] [place] [address]- Care Team Providers Name Role Phone Conrado Baldwin MD Primary Care Physician [place] [facility] [place](s): 10/25/21 - 11/01/21 [facility] [address] [place], [place] [address] Attending Physician: Conrado Baldwin MD Allergies, Adverse [...] tetanus-diphtheria toxoids (Td) 01/05/06 Given 1Result Comment: [id number] Note: PT RECIEVED SERIES AT WORK Medications [...] 04/02/21 15:18:00 EST, Route to Pharmacy Electronically, [facility]/pharmacy #[id number], Pharmacy Never Received Script From 06-11-2015, 166, cm, 04/02/21 14:58:00 EST, Height Start Date: 04/02/21 Status: OrderedmetroNIDAZOLE 0.75% topical cream 1 application, Topically, 2 times a day, # 45 Gm, 3 Refills, Maintenance, 04/02/21 15:18:00 EST, Cream, [facility]/pharmacy #[id number], 1 application Topically 2 times a day, 166, cm, 04/02/21 14:58:00 EST, Height Start Date: 04/02/21 Status: Orderedmirtazapine 15 mg oral tablet 1 tablet = 15 mg, By Mouth, Daily at bedtime, # 30 tablet, 5 Refills, Maintenance, 10/23/21 13:44:00EDT, Tablet, [facility]/pharmacy #[id number], Partial fill upon patient request if the prescription is for a schedule II opioid drug., 162.6, cm, 10/08/21 10:31:00... Start Date: 10/23/21 Status: Orderedraloxifene 60 mg oral tablet 1 tablet = 60 mg, By Mouth, Daily, # 30 tablet, 3 Refills, Maintenance, 08/07/21 13:28:00 EDT, Tablet, [facility]/pharmacy #[id number], Partial fill upon [...] depression(Confirmed) Active Repair of inguinal Active hernia-left(Confirmed) Vital Signs Most recent to oldest [Reference Range]: 1 Height 162.6 cm (10/25/21 11:45 AM) Weight 68 kg (10/25/21 11:45 AM) Oxygen Saturation [94-100 %] 96 % (10/25/21 11:45 AM) Pulse Rate [55-90 bpm] 110 bpm *H* (10/25/21 11:45 AM) Body Mass Index [18.5-24.99] 25.72 *H* (10/25/21 11:45 AM) Blood Pressure [90-138/55-84 mm Hg] 116/64 mm Hg (10/25/21 11:45 AM) Respiratory Rate [16-30 br/min] 16 br/min (10/25/21 11:45 AM) Mode of Delivery (Oxygen) Room air (10/25/21 11:45 AM) Blood pressure sites Arm, left (10/25/21 11:45 AM) Weight Obtained Via Standing scale (10/25/21 11:45 AM) Social History Social History Type Response Smoking Status Never smoker entered on: 05/06/13 Sex
--- OUTSIDE RECORDS SUMMARY | 2022-02-19 22:36 | XMS_ITS | Continuity of Care Document ---
:1960 Author Organization [facility] Address [address] [place] [address]- Care Team Providers Name Role Phone Nicolasa DAVENPORT, Conrado Cleary Primary Care Physician Encounter [facility] Date(s): 06/11/20 - 07/11/20 [facility] [address] [place], [place] [address] Allergies, Adverse Reactions, Alerts Substance Reaction [...] 04/15/20 14:01:00 EST, Route to Pharmacy Electronically, [facility]/pharmacy #[id number], Pharmacy Never Received Script From 06-11-2015, 166, [...]
--- OUTSIDE RECORDS SUMMARY | 2022-02-19 22:36 | XMS_ITS | Continuity of Care Document ---
:1960 Author Organization [facility] Address [address] [place] [address]- Care Team Providers Name Role Phone Conrado Baldwin MD Primary Care Physician [place] [facility] [place] 10/08/21 - 10/08/[address] [address] Discharge Disposition: A-D/C Home Attending Physician: Valdez Skaggs MD Admitting Physician: Valdez Skaggs MD Referring Physician: Valdez Skaggs MD Allergies, Adverse Reactions, Alerts Substance Reaction [...] tetanus-diphtheria toxoids (Td) 01/05/06 Given 1Result Comment: [id number] Note: PT RECIEVED SERIES AT WORK Medications [...] 04/02/21 15:18:00 EST, [id number] Never Re[facility] Script From 06-11-2015, 166, cm, 04/02/21 14:58:00 EST, Height Start Date: 04/02/21 Status: OrderedmetroNIDAZOLE 0.75% topical cream 1 application, Topically, 2 times a day, # 45 Gm, 3 Refills, Maintenance, 04/02/21 15:18:00 EST, Cream, [facility]/pharmacy #[id number], 1 application Topically 2 times a day, 166, cm, 04/02/21 14:58:00 EST, Height Start Date: 04/02/21 Status: Orderedraloxifene 60 mg oral tablet 1 tablet = 60 mg, By Mouth, Daily, # 30 tablet, 3 Refills, Maintenance, 08/07/21 13:28:00 EDT, Tablet[id number] Partial fill upon patient request if [...] depression(Confirmed) Active Repair of inguinal Active hernia-left(Confirmed) Procedures Procedure Date Related Diagnosis Body Site Status Colonoscopy with polypectomy 10/08/21 Completed Vital Signs Most recent to oldest 1 2 3 [Reference Range]: Height 162.6 cm (10/08/21 10:31 AM) Weight 65.8 kg (10/08/21 10:31 AM) Oxygen Saturation [94-100 %] 100 % (10/08/21 10:31 AM) Pulse Rate [55-90 bpm] 75 bpm (10/08/21 10:31 AM) Body Mass Index [18.5-24.99] 24.89 (10/08/21 10:31 AM) Blood Pressure [90-138/55-84 118/73 mm Hg 116/77 mm Hg 114 /79 mm Hg mm Hg] (10/08/21 12:24 PM) (10/08/21 12:14 PM) (10/08/21 1 0:31 AM) Respiratory Rate [16-30 18 br/min 16 br/min 21 br/mi n br/min] (10/08/21 12:24 PM) (10/08/21 12:14 PM) (10/08/21 1 0:31 AM) Temperature [96.8-100.4 98.0 DegF DegF] (10/08/21 10:31 AM) Mode of Delivery (Oxygen) Room air Room air Room a ir (10/08/21 12:24 PM) (10/08/21 12:14 PM) (10/08/21 1 0:31 AM) Temperature Route Temporal (10/08/21 10:31 AM) Social History Social History Type Response Smoking Status Never smoker entered on: 05/06/13 Sex
--- OUTSIDE RECORDS SUMMARY | 2022-02-19 22:36 | XMS_ITS | Continuity of Care Document ---
:1960 Author Organization [facility] Address [address] [place] [address]- Care Team Providers Name Role Phone Conrado Baldwin MD Primary Care Physician [place] [facility] [place] 03/[place]20 - 04/05/20 [facility] [address] [place], [place] [address] Attending Physician: Conrado Baldwin MD Allergies, Adverse [...] 04/15/20 14:01:00 EST, Route to Pharmacy Electronically, [facility]/pharmacy #[id number], Pharmacy Never Received Script From 06-11-2015, 166, [...] Most recent to oldest [Reference Range]: 1 Blood Pressure [90-138/55-84 mm Hg] 122/78 mm Hg (03/29/20 10:45 AM) Social History Social History Type Response Smoking Status Never smoker entered on: 05/06/13 Sex
--- OUTSIDE RECORDS SUMMARY | 2022-02-19 22:36 | XMS_ITS | Continuity of Care Document ---
:1960 Author Organization [facility] Address [address] [place] [address]- Care Team Providers Name Role Phone Conrado Baldwin MD Primary Care Physician Encounter [facility] Date(s): 01/16/20 - 02/15/20 [facility] [address] [place] [address]- [facility] Allergies, Adverse Reactions, Alerts Substance Reaction Severity [...] By Mouth, Daily, # 90 tablet, Refills 0, Tot. Refills 0, Maintenance, 01/16/20 14:01:00 EDT, Route to Pharmacy Electronically, [facility]/pharmacy #[id number], Pharmacy Never Received Script From 06-11-2015, 166, cm, 06/09/19 8:24:00 EST, Height Start Date: 01/16/20 Stop Date: 04/15/20 Status: OrderedmetroNIDAZOLE 0.75% topical cream 1 application, Topically, 2 times a day, # 45 Gm, 2 Refills, Maintenance, 07/19/18 9:32:40 EDT, Cream, 1 application Topically 2 times a day Start Date: 07/19/18 Status: Ordered Problem List Condition Effective Dates [...]
--- OUTSIDE RECORDS SUMMARY | 2022-02-19 22:36 | XMS_ITS | Continuity of Care Document ---
:1960 Author Organization [facility] Address [address] [place] [address]- Care Team Providers Name Role Phone Conrado Baldwin MD Primary Care Physician Encounter [facility] [place] Date(s): 07/26/21 - 07/26/[address] [address] Discharge Disposition: A-D/C Home Attending Physician: Bianca Griffin MD Admitting Physician: Bianca Griffin MD Referring Physician: Bianca Griffin MD Allergies, Adverse Reactions, Alerts Substance Reaction [...] tetanus-diphtheria toxoids (Td) 01/05/06 Given 1Result Comment: [id number] Note: PT RECIEVED SERIES AT WORK Medications Calcium (as carbonate)-vitamin D 500 mg-400 intl units oral tablet, chewable 1 tablet, Chew, Daily, # 60 tablet, 0 Refills, Maintenance, 06/27/11 10:07:37, Chew Tablet Start Date: 3/16/12 Status: Orderedlisinopril 5 mg oral tablet 5 mg, 1, tablet, By Mouth, Daily, # 90 tablet, Refills 3, Tot. Refills 3, Maintenance, 04/02/21 15:18:00 EST, [id number] Never Received Script From 06-11-2015, 166, cm, 04/02/21 14:58:00 EST, Height Start Date: 04/02/21 Status: OrderedmetroNIDAZOLE 0.75% topical cream 1 application, Topically, 2 times a day, # 45 Gm, 3 Refills, Maintenance, 04/02/21 15:18:00 EST, Cream, [facility]/pharmacy #[id number], 1 application Topically 2 times a day, 166, cm, 04/02/21 14:58:00 EST, Height Start Date: 04/02/21 Status: OrderedoxyCODONE 5 mg oral capsule 1 capsule = 5 mg, By Mouth, Every 6 hours, PRN as needed for pain, Do not drive on narcotic medication., # 5 capsule, 0 Refills, Acute 07/28/21 8:51:00 EDT, 07/26/21 8:51:00 EDT, Capsule, [facility]/pharmacy #[id number], Partial fill upon patient request if the pr... Start Date: 07/26/21 Stop Date: 07/28/21 Status: Ordered Problem List Condition Effective Dates [...] hernia-left(Confirmed) Vital Signs Most recent to oldest 1 2 3 [Reference Range]: Height 168 cm 168 cm (07/26/21 6:17 AM) (07/23/21 12:55 PM) Weight 68.0 kg 66 kg (07/26/21 6:17 AM) (07/23/21 12:55 PM) Oxygen Saturation [94-100 100 % 100 % 98 % %] (07/26/21 9:45 AM) (07/26/21 9:30 AM) (07/26/21 9:1 5 AM) Pulse Rate [55-90 bpm] 88 bpm (07/26/21 6:17 AM) Body Mass Index 24.09 23.38 [18.5-24.99] (07/26/21 6:17 AM) (07/23/21 12:55 PM) Blood Pressure 156/95 mm Hg 121/71 mm Hg 118/96 mm Hg [90-138/55-84 mm Hg] *H* (07/26/21 9:15 AM) (07/26/21 9:00 AM) (07/26/21 9:30 AM) Respiratory Rate [16-30 23 br/min 23 br/min 22 br/mi n br/min] (07/26/21 9:30 AM) (07/26/21 9:15 AM) (07/26/21 9:0 0 AM) Temperature [96.8-100.4 97.0 DegF 97.0 DegF 98.4 Deg F DegF] (07/26/21 9:30 AM) (07/26/21 8:45 AM) (07/26/21 6:1 7 AM) Liters per Minute 5 L/min 5 L/min (07/26/21 9:00 AM) (07/26/21 8:45 AM) Mode of Delivery (Oxygen) Room air Room air Room a ir (07/26/21 9:45 AM) (07/26/21 9:30 AM) (07/26/21 9:1 5 AM) Blood pressure sites Arm, left Arm, left Arm, left (07/26/21 9:30 AM) (07/26/21 9:15 AM) (07/26/21 9:0 0 AM) Temperature Route Temporal Temporal Temporal (07/26/21 9:30 AM) (07/26/21 8:45 AM) (07/26/21 6:1 7 AM) Dry Weight 68.0 kg 66 kg (07/26/21 6:17 AM) (07/23/21 12:55 PM) Weight Obtained Via Standing scale Patient/family stated (07/26/21 6:17 AM) (07/23/21 12:55 PM) Dry Weight Obtained Via Standing scale Patient/family stated (07/26/21 6:17 AM) (07/23/21 12:55 PM) Social History Social History Type Response Smoking Status Never smoker entered on: 05/06/13 Sex
--- OUTSIDE RECORDS SUMMARY | 2022-02-19 22:36 | XMS_ITS | Continuity of Care Document ---
:1960 Author Organization [facility] Address [address] [place] [address]- Care Team Providers Name Role Phone Nicolasa DAVENPORT, Conrado Cleary Primary Care Physician En[place] [facility] [place] Date(s): 04/16/21 - 05/16/21 [facility] [address] [place], [place] [address] Allergies, Adverse Reactions, Alerts [...] tetanus-diphtheria toxoids (Td) 01/05/06 Given 1Result Comment: [id number] Note: PT RECIEVED SERIES AT WORK Medications [...] 04/02/21 15:18:00 EST, Route to Pharmacy Electronically, [facility]/pharmacy #[id number], Pharmacy Never Received Script From 06-11-2015, 166, cm, 04/02/21 14:58:00 EST, Height Start Date: 04/02/21 Status: OrderedmetroNIDAZOLE 0.75% topical cream 1 application, Topically, 2 times a day, # 45 Gm, 3 Refills, Maintenance, 04/02/21 15:18:00 EST, Cream, [facility]/pharmacy #[id number], 1 application Topically 2 times a day, 166, cm, 04/02/21 14:58:00 EST, Height Start Date: 04/02/21 Status: OrderedNuLYTELY with Flavor Packs oral powder for reconstitution 240 mL, By Mouth, Every 10 minutes, Split prep method CAN SUBSTITUTE WITH ANY PEG 3350 SOLUTION AVAILABLE, # 1 each, 0 Refills, Acute 10/08/21 8:00:00 EDT, 10/07/21 17:00:00 EDT, REC Powder, [facility]/pharmacy #[id number], test date 10/08/21, 240 mL [...]
--- OUTSIDE RECORDS SUMMARY | 2022-02-19 22:36 | XMS_ITS | Continuity of Care Document ---
:1960 Author Organization [facility] Address [address] [place] [address]- Care Team Providers Name Role Phone Nicolasa DAVENPORT, Conrado Cleary Primary Care Physician [facility] Date[facility]): 11/27/21 - 12/27/21 [facility] [address] [place], [place] [address] Allergies, Adverse Reactions, Alerts Substance Reaction [...] tetanus-diphtheria toxoids (Td) 01/05/06 Given 1Result Comment: [id number] Note: PT RECIEVED SERIES AT WORK Medications [...] 04/02/21 15:18:00 EST, [id number], Pharmacy Never Received Script From 06-11-2015, 166, cm, 04/02/21 14:58:00 EST, Height Start Date: 04/02/21 Status: OrderedmetroNIDAZOLE 0.75% topical cream 1 application, Topically, 2 times a day, # 45 Gm, 3 Refills, Maintenance, 04/02/21 15:18:00 EST, Cream, [id number], 1 application Topically 2 times a day, 166, cm, 04/02/21 14:58:00 EST, Height Start Date: 04/02/21 Status: Orderedmirtazapine 15 mg oral tablet 1 tablet = 15 mg, By Mouth, Daily at bedtime, # 30 tablet, 5 Refills, Maintenance, 10/23/21 13:44:00EDT, Tablet, [facility]/pharmacy #[id number], Partial fill upon patient request if the prescription is for a schedule II opioid drug., 162.6, cm, 10/08/21 10:31:00... Start Date: 10/23/21 Status: Orderedraloxifene 60 mg oral tablet 1 tablet, By Mouth, Daily, # 90 tablet, 3 Refills, Maintenance, 12/12/21 9:37:00 EDT, [id number], 162.6, cm, 12/04/21 15:52:00 EDT, Height, 68, kg, 07/26/21 6:17:00 EDT, Dry Weight Start Date: 12/12/21 Status: Ordered Problem List Condition Effective Dates [...] Status Never smoker entered on: 05/06/13 Sex Care Team PersonnelName: Conrado Baldwin MD Address: [address] [place] [address] Adult & Pediatric Medicine [place], [place] [address] [[email or web address]]
--- OUTSIDE RECORDS SUMMARY | 2022-02-19 22:36 | XMS_ITS | Continuity of Care Document ---
:1960 Author Organization [facility] Address [address] [place] [address]- Care Team Providers Name Role Phone Nicolasa DAVENPORT, Conrado Cleary Primary Care Physician [facility] Date[facility] 07/26/20 - 08/25/20 [facility] [address] [place], [place] [address] Allergies, Adverse Reactions, Alerts Substance [...] 04/15/20 14:01:00 EST, Route to Pharmacy Electronically, [facility]/pharmacy #[id number], Pharmacy Never Received Script From 06-11-2015, 166, cm, 02/27/20 8:24:00 EST, Height Start Date: 04/15/20 Status: [...]
--- OUTSIDE RECORDS SUMMARY | 2022-02-19 22:36 | XMS_ITS | Continuity of Care Document ---
:1960 Author Organization [facility] Address [address] [place] [address]- Care Team Providers Name Role Phone Nicolasa DAVENPORT, Conrado Cleary Primary Care Physician [facility] Date(s): 11/26/21 - 12/26/21 [facility] [address] [place] [address]- Allergies, Adverse Reactions, Alerts Substance Reaction Severity [...] tetanus-diphtheria toxoids (Td) 01/05/06 Given 1Result Comment: [id number] Note: PT RECIEVED SERIES AT WORK Medications [...] 04/02/21 15:18:00 EST, Route to Pharmacy Electronically, [facility]/pharmacy #[id number], Pharmacy Never Received Script From 06-11-2015, 166, cm, 04/02/21 14:58:00 EST, Height Start Date: 04/02/21 Status: OrderedmetroNIDAZOLE 0.75% topical cream 1 application, Topically, 2 times a day, # 45 Gm, 3 Refills, Maintenance, 04/02/21 15:18:00 EST, Cream, [facility]/pharmacy #[id number], 1 application Topically 2 times a day, 166, cm, 04/02/21 14:58:00 EST, Height Start Date: 04/02/21 Status: Orderedmirtazapine 15 mg oral tablet 1 tablet = 15 mg, By Mouth, Daily at bedtime, # 30 tablet, 5 Refills, Maintenance, 10/23/21 13:44:00EDT, Tablet, [facility]/pharmacy #[id number], Partial fill upon patient request if the prescription is for a schedule II opioid drug., 162.6, cm, 10/08/21 10:31:00... Start Date: 10/23/21 Status: Orderedraloxifene 60 mg oral tablet 1 tablet, By Mouth, Daily, # 90 tablet, 3 Refills, Maintenance, 12/12/21 9:37:00 EDT, [id number], 162.6, cm, 12/04/21 15:52:00 EDT, Height, 68, [...] Care Team PersonnelName: Conrado Baldwin MD Address: [address] [place] [address] Adult & Pediatric Medicine [place], [place] [address]
--- OUTSIDE RECORDS SUMMARY | 2022-02-19 22:36 | XMS_ITS | Continuity of Care Document ---
:1960 Author Organization [facility] Address [address] [place] [address]- Care Team Providers Name Role Phone Nicolasa DAVENPORT, Conrado Cleayr Primary Care Physician [facility] Date[facility]s): 06/11/20 - 07/11/20 [facility] [address] [place], [place] [address] Allergies, Adverse Reactions, Alerts Substance Reaction Severity [...] 04/15/20 14:01:00 EST, Route to Pharmacy Electronically, [facility]/pharmacy #[id number], Pharmacy Never Received Script From 06-11-2015, 166, [...]
--- OUTSIDE RECORDS SUMMARY | 2022-02-19 22:36 | XMS_ITS | Continuity of Care Document ---
:1960 Author Organization [facility] Address [address] [place] [address]- Care Team Providers Name Role Phone Nicolasa DAVENPORT, Conrado Cleary Primary Care Physician [facility] Date[facility]s): 11/29/21 - 12/29/21 [facility] [address] [place], [place] [address] Allergies, Adverse Reactions, Alerts Substance [...] tetanus-diphtheria toxoids (Td) 01/05/06 Given 1Result Comment: [id number] Note: PT RECIEVED SERIES AT WORK Medications [...] Route to Pharmacy Electronically, [facility]/pharmacy #[id number], Pharmacy Never Received Script From 06-11-2015, 166, cm, 04/02/21 14:58:00 EST, Height Start Date: 04/02/21 Status: OrderedmetroNIDAZOLE 0.75% topical cream 1 application, Topically, 2 times a day, # 45 Gm, 3 Refills, Maintenance, 04/02/21 15:18:00 EST, Cream, [facility]/pharmacy #[id number], 1 application Topically 2 times a day, 166, cm, 04/02/21 14:58:00 EST, Height Start Date: 04/02/21 Status: Orderedmirtazapine 15 mg oral tablet 1 tablet = 15 mg, By Mouth, Daily at bedtime, # 30 tablet, 5 Refills, Maintenance, 10/23/21 13:44:00EDT, Tablet, [facility]/pharmacy #[id number], Partial fill upon patient request if the prescription is for a schedule II opioid drug., 162.6, cm, 10/08/21 10:31:00... Start Date: 10/23/21 Status: Orderedraloxifene 60 mg oral tablet 1 tablet, By Mouth, Daily, # 90 tablet, 3 Refills, Maintenance, 12/12/21 9:37:00 EDT, [id number], 162.6, cm, 12/04/21 15:52:00 EDT, Height, 68, [...] Care Team PersonnelName: Conrado Baldwin MD Address: [address] [place] [address] Adult & Pediatric Medicine [place], [place] [address]
--- OUTSIDE RECORDS SUMMARY | 2022-02-19 22:36 | XMS_ITS | Continuity of Care Document ---
:1960 Author Organization [facility] Address [address] [place] [address]- Care Team Providers Name Role Phone Nicolasa DAVENPORT, Conrado Cleary Primary Care Physician [facility] Date(s): 10/24/21 - 11/23/21 [facility] [address] [place] [address]- Allergies, Adverse Reactions, Alerts Substance Reaction Severity [...] tetanus-diphtheria toxoids (Td) 01/05/06 Given 1Result Comment: [id number] Note: PT RECIEVED SERIES AT WORK Medications [...] 15:18:00 EST, Route to Pharmacy Electronically, [facility]/pharmacy #[id number], Pharmacy Never Received Script From 06-11-2015, 166, cm, 04/02/21 14:58:00 EST, Height Start Date: 04/02/21 Status: OrderedmetroNIDAZOLE 0.75% topical cream 1 application, Topically, 2 times a day, # 45 Gm, 3 Refills, Maintenance, 04/02/21 15:18:00 EST, Cream, [facility]/pharmacy #[id number], 1 application Topically 2 times a day, 166, cm, 04/02/21 14:58:00 EST, Height Start Date: 04/02/21 Status: Orderedmirtazapine 15 mg oral tablet 1 tablet = 15 mg, By Mouth, Daily at bedtime, # 30 tablet, 5 Refills, Maintenance, 10/23/21 13:44:00EDT, Tablet, [facility]/pharmacy #[id number], Partial fill upon patient request if the prescription is for a schedule II opioid drug., 162.6, cm, 10/08/21 10:31:00... Start Date: 10/23/21 Status: Orderedraloxifene 60 mg oral tablet 1 tablet = 60 mg, By Mouth, Daily, # 30 tablet, 3 Refills, Maintenance, 08/07/21 13:28:00 EDT, Tablet, [facility]/pharmacy #[id number], Partial fill upon patient [...]
--- OUTSIDE RECORDS SUMMARY | 2022-02-19 22:36 | XMS_ITS | Continuity of Care Document ---
:1960 Author Organization [facility] Address [address] [place] [address]- Care Team Providers Name Role Phone Conrado Baldwin MD Primary Care Physician Encounter [id number] Date(s): 04/02/21 - 04/09/21 [facility] [address] [place], [place] [address] Attending Physician: Conrado Baldwin MD Allergies, [...] tetanus-diphtheria toxoids (Td) 01/05/06 Given 1Result Comment: [id number] Note: PT RECIEVED SERIES AT WORK Medications [...] 04/02/21 15:18:00 EST, Route to Pharmacy Electronically, [facility]/pharmacy #[id number], Pharmacy Never Received Script From 06-11-2015, 166, cm, 04/02/21 14:58:00 EST, Height Start Date: 04/02/21 Status: OrderedmetroNIDAZOLE 0.75% topical cream 1 application, Topically, 2 times a day, # 45 Gm, 3 Refills, Maintenance, 04/02/21 15:18:00 EST, Cream, [facility]/pharmacy #[id number], 1 application Topically 2 times a [...] recent to oldest [Reference Range]: 1 Height 166.00 cm (04/02/21 2:58 PM) Weight 65.6 kg (04/02/21 2:58 PM) Oxygen Saturation [94-100 %] 98 % (04/02/21 2:58 PM) Pulse Rate [55-90 bpm] 94 bpm *H* (04/02/21 2:58 PM) Body Mass Index [18.5-24.99] 23.81 (04/02/21 2:58 PM) Blood Pressure [90-138/55-84 mm Hg] 130/70 mm Hg (04/02/21 2:58 PM) Blood pressure sites Arm, left (04/02/21 2:58 PM) Social History Social History Type Response Smoking Status Never smoker entered on: 05/06/13 Sex
--- OUTSIDE RECORDS SUMMARY | 2022-02-19 22:36 | XMS_ITS | Continuity of Care Document ---
:[address] [facility] Address [address] [place] [address]- Care Team Providers Name Role Phone Conrado Baldwin MD Primary Care Physician [facility] Date(s): 04/09/20 - 05/09/20 [facility] [address] [place], [place] [address] Allergies, Adverse Reactions, Alerts Substance Reaction [...] 04/15/20 14:01:00 EST, Route to Pharmacy Electronically, [facility]/pharmacy #[id number], Pharmacy Never Received Script From 06-11-2015, 166, [...]
--- OUTSIDE RECORDS SUMMARY | 2022-02-19 22:36 | XMS_ITS | Continuity of Care Document ---
:1960 Author Organization [facility] Address [address] [place] [address]- Care Team Providers Name Role Phone Nicolasa DAVENPORT, Conrado Cleary Primary Care Physician [facility] Date[facility]s): 06/11/20 - 07/11/20 [facility] [address] [place], [place] [address] Allergies, Adverse Reactions, Alerts Substance [...] EST, Route to Pharmacy Electronically, [facility]/pharmacy #[id number], Pharmacy Never Received Script From 06-11-2015, 166, [...]
--- OUTSIDE RECORDS SUMMARY | 2022-02-19 22:36 | XMS_ITS | Continuity of Care Document ---
:[address] [facility] Address [address] [place] [address]- Care Team Providers Name Role Phone Conrado Baldwin MD Primary Care Physician Encounter [facility] Date(s): 04/11/20 - 05/11/20 [facility] [address] [place], [place] [address] Allergies, Adverse Reactions, Alerts Substance Reaction [...] Route to Pharmacy Electronically, [facility]/pharmacy #[id number], Pharmacy Never Received Script From 06-11-2015, 166, [...]
--- OUTSIDE RECORDS SUMMARY | 2022-02-19 22:36 | XMS_ITS | Continuity of Care Document ---
:1960 Author Organization [facility] Address [address] [place] [address]- Care Team Providers Name Role Phone Conrado Baldwin MD Primary Care Physician Encounter [facility] Date(s): 10/09/21 - 11/08/21 [facility] [address] [place] [address]- [place] Allergies, Adverse Reactions, Alerts Substance Reaction [...] tetanus-diphtheria toxoids (Td) 01/05/06 Given 1Result Comment: [id number] Note: PT RECIEVED SERIES AT WORK Medications [...] 04/02/21 15:18:00 EST, [id number]acy Never Received Script From 06-11-2015, 166, cm, 04/02/21 14:58:00 EST, Height Start Date: 04/02/21 Status: OrderedmetroNIDAZOLE 0.75% topical cream 1 application, Topically, 2 times a day, # 45 Gm, 3 Refills, Maintenance, 04/02/21 15:18:00 EST, Cream, [facility]/pharmacy #[id number], 1 application Topically 2 times a day, 166, cm, 04/02/21 14:58:00 EST, Height Start Date: 04/02/21 Status: Orderedmirtazapine 15 mg oral tablet 1 tablet = 15 mg, By Mouth, Daily at bedtime, # 30 tablet, 5 Refills, Maintenance, 10/23/21 13:44:00EDT, Tablet, [facility]/pharmacy #[id number], Partial fill upon patient request if the prescription is for a schedule II opioid drug., 162.6, cm, 10/08/21 10:31:00... Start Date: 10/23/21 Status: Orderedraloxifene 60 mg oral tablet 1 tablet = 60 mg, By Mouth, Daily, # 30 tablet, 3 Refills, Maintenance, 08/07/21 13:28:00 EDT, Tablet, [facility]/pharmacy #[id number], Partial fill upon patient request [...]
--- OUTSIDE RECORDS SUMMARY | 2022-02-19 22:36 | XMS_ITS | Continuity of Care Document ---
:1960 Author Organization [facility] Address [address] [place] [address]- Care Team Providers Name Role Phone Nicolasa DAVENPORT, Conrado Cleary Primary Care Physician Encounter [facility] Date(s): 01/20/22 - 01/21/[address] [address]- Discharge Disposition: A-D/C Home Attending Physician: Santo Marcano MD Admitting Physician: Santo Marcano MD Referring Physician: Not on Staff, Referring MD Allergies, Adverse Reactions, Alerts Substance Reaction [...] tetanus-diphtheria toxoids (Td) 01/05/06 Given 1Result Comment: [id number] Note: PT RECIEVED SERIES AT WORK Medications [...] 15:18:00 EST, Route to Pharmacy Electronically, [facility]/pharmacy #[id number], Pharmacy Never Received Script From 06-11-2015, 166, cm, 04/02/21 14:58:00 EST, Height Start Date: 04/02/21 Status: OrderedmetroNIDAZOLE 0.75% topical cream 1 application, Topically, 2 times a day, # 45 Gm, 3 Refills, Maintenance, 04/02/21 15:18:00 EST, Cream, [facility]/pharmacy #[id number], 1 application Topically 2 times a day, 166, cm, 04/02/21 14:58:00 EST, Height Start Date: 04/02/21 Status: Orderedmirtazapine 15 mg oral tablet 1 tablet = 15 mg, By Mouth, Daily at bedtime, # 30 tablet, 5 Refills, Maintenance, 10/23/21 13:44:00EDT, Tablet, [facility]/pharmacy #[id number], Partial fill upon patient request if the prescription is for a schedule II opioid drug., 162.6, cm, 10/08/21 10:31:00... 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 Narrow angle glaucoma Confirmed Active suspect B12 deficiency Confirmed Active Macular degeneration Confirmed Active Depression Confirmed Active Family history of Confirmed Active breast cancer in mother, sister, grandmothers two maternal couslins FH: Depression-both Confirmed Active parents FH: Diabetes mellitus Confirmed 02/21/08 Active P grandfather FH: Hypertension Confirmed Active Personal history of Confirmed 10/09/21 Active colonic polyps Hyperlipidemia LDL Confirmed 05/06/13 Active goal <130 Hypertension Confirmed 02/24/13 Active Anxiety and Confirmed Active depression 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 depression Confirmed Active Repair of inguinal Confirmed Active hernia-left Vital Signs Most recent to oldest 1 2 3 [Reference Range]: Height 162.56 cm 162.56 cm (01/21/22 6:58 AM) (01/21/22 12:00 AM) Weight 68.18 kg 68.18 kg (01/21/22 6:58 AM) (01/21/22 12:00 AM) Oxygen Saturation [94-100 100 % 100 % 100 % %] (01/21/22 6:58 AM) (01/21/22 2:08 AM) (01/21/22 12:00 AM) Pulse Rate [55-90 bpm] 78 bpm 106 bpm 99 bpm (01/21/22 6:58 AM) *H* *H* (01/21/22 2:08 AM) (01/21/22 12: 00 AM) Body Mass Index 25.8 kg/m2 25.8 kg/m2 [18.5-24.99 kg/m2] *H* *H* (01/21/22 6:58 AM) (01/21/22 12:00 AM) Blood Pressure 136/67 mm Hg 173/88 mm Hg 160/93 mm Hg [90-138/55-84 mm Hg] (01/21/22 6:58 AM) *H* *H* (01/21/22 2:08 AM) (01/21/22 12: 00 AM) Respiratory Rate [16-30 16 br/min 16 br/min br/min] (01/21/22 6:58 AM) (01/21/22 12:00 AM) Temperature [96.8-100.4 97.5 DegF 98.0 DegF DegF] (01/21/22 2:08 AM) (01/21/22 12:00 AM) Mode of Delivery (Oxygen) Room air Room air (01/21/22 6:58 AM) (01/21/22 12:00 AM) Blood pressure sites Arm, right Arm, left Arm, left (01/21/22 6:58 AM) (01/21/22 2:08 AM) (01/21/22 12:00 AM) Temperature Route Oral Oral (01/21/22 2:08 AM) (01/21/22 12:00 AM) Dry Weight 68.18 kg 68.18 kg (01/21/22 6:58 AM) (01/21/22 12:00 AM) Weight Obtained Via Patient/family stated (01/21/22 12:00 AM) Dry Weight Obtained Via Patient/family stated (01/21/22 12:00 AM) Social History Social History Type Response Smoking Status Never smoker entered on: 05/06/13 Sex Patient Care team information PersonnelName: Conrado Baldwin MD Address: Address: [address] [place] [address] [facility] [address]
--- OUTSIDE RECORDS SUMMARY | 2022-02-19 22:36 | XMS_ITS | Continuity of Care Document ---
:[address] [facility] Address [address] [place] [address]- Care Team Providers Name Role Phone Conrado Baldwin MD Primary Care Physician [place] [facility] [place]s): 04/27/19 - 08/25/19 [facility] [address] [place] [address]- [facility] Attending Physician: Conrado Baldwin MD Allergies, Adverse [...] By Mouth, Daily, # 90 tablet, Refills 1, Tot. Refills 1, Maintenance, 07/18/19 10:48:00 EDT, Route to Pharmacy Electronically, [facility]/pharmacy #[id number], Pharmacy Never Received Script From 06-11-2015, 166, cm, 06/09/19 8:24:00 EST, Height Start Date: 07/18/19 Stop Date: 01/14/20 Status: OrderedmetroNIDAZOLE 0.75% topical cream 1 application, [...]
--- OUTSIDE RECORDS SUMMARY | 2022-02-19 22:36 | XMS_ITS | Continuity of Care Document ---
:1960 Author Organization [facility] Address [address] [place] [address]- Care Team Providers Name Role Phone Nicolasa DAVENPORT, Conrado Cleary Primary Care Physician [facility] Date(s): 10/23/21 - 11/22/21 [facility] [address] [place] [address]- Allergies, Adverse Reactions, Alerts Substance Reaction Severity [...] tetanus-diphtheria toxoids (Td) 01/05/06 Given 1Result Comment: [id number] Note: PT RECIEVED SERIES AT WORK Medications [...] 04/02/21 15:18:00 EST, Route to Pharmacy Electronically, [facility]/pharmacy #[id number], Pharmacy Never Received Script From 06-11-2015, 166, cm, 04/02/21 14:58:00 EST, Height Start Date: 04/02/21 Status: OrderedmetroNIDAZOLE 0.75% topical cream 1 application, Topically, 2 times a day, # 45 Gm, 3 Refills, Maintenance, 04/02/21 15:18:00 EST, Cream, [facility]/pharmacy #[id number], 1 application Topically 2 times a day, 166, cm, 04/02/21 14:58:00 EST, Height Start Date: 04/02/21 Status: Orderedmirtazapine 15 mg oral tablet 1 tablet = 15 mg, By Mouth, Daily at bedtime, # 30 tablet, 5 Refills, Maintenance, 10/23/21 13:44:00EDT, Tablet, [facility]/pharmacy #[id number], Partial fill upon patient request if the prescription is for a schedule II opioid drug., 162.6, cm, 10/08/21 10:31:00... Start Date: 10/23/21 Status: Orderedraloxifene 60 mg oral tablet 1 tablet = 60 mg, By Mouth, Daily, # 30 tablet, 3 Refills, Maintenance, 08/07/21 13:28:00 EDT, Tablet, [facility]/pharmacy #[id number], Partial fill upon patient [...]
--- OUTSIDE RECORDS SUMMARY | 2022-02-19 22:36 | XMS_ITS | Continuity of Care Document ---
:1960 Author Organization [facility] Address [address] [place] [address]- Care Team Providers Name Role Phone Conrado Baldwin MD Primary Care Physician Encounter [facility] Date(s): 12/30/19 - 04/28/20 [facility] [address] [place], [place] [address] Attending Physician: Conrado Baldwin MD [...] 14:01:00 EST, Route to Pharmacy Electronically, [facility]/pharmacy #[id number], Pharmacy Never Received Script From 06-11-2015, 166, cm, 06/09/19 8:24:00 EST, Height Start Date: 04/15/20 Status: OrderedmetroNIDAZOLE 0.75% topical cream 1 application, Topically, 2 times a day, # 45 Gm, 3 Refills, Maintenance, 12/17/20 10:37:00 EST, Cream, [id number], 1 application [...]
--- OUTSIDE RECORDS SUMMARY | 2022-02-19 22:36 | XMS_ITS | Continuity of Care Document ---
:1960 Author Organization [facility] Address [address] [place] [address]- Care Team Providers Name Role Phone Nicolasa DAVENPORT, Conrado Cleary Primary Care Physician [facility] Date(s): 10/24/21 - 11/23/21 [facility] [address] [place], [place] [address] Allergies, Adverse Reactions, Alerts Substance [...] tetanus-diphtheria toxoids (Td) 01/05/06 Given 1Result Comment: [id number] Note: PT RECIEVED SERIES AT WORK Medications [...] 04/02/21 15:18:00 EST, Route to Pharmacy Electronically, [facility]/pharmacy #[id number], Pharmacy Never Received Script From 06-11-2015, 166, cm, 04/02/21 14:58:00 EST, Height Start Date: 04/02/21 Status: OrderedmetroNIDAZOLE 0.75% topical cream 1 application, Topically, 2 times a day, # 45 Gm, 3 Refills, Maintenance, 04/02/21 15:18:00 EST, Cream, [facility]/pharmacy #[id number], 1 application Topically 2 times a day, 166, cm, 04/02/21 14:58:00 EST, Height Start Date: 04/02/21 Status: Orderedmirtazapine 15 mg oral tablet 1 tablet = 15 mg, By Mouth, Daily at bedtime, # 30 tablet, 5 Refills, Maintenance, 10/23/21 13:44:00EDT, Tablet, [facility]/pharmacy #[id number], Partial fill upon patient request if the prescription is for a schedule II opioid drug., 162.6, cm, 10/08/21 10:31:00... Start Date: 10/23/21 Status: Orderedraloxifene 60 mg oral tablet 1 tablet = 60 mg, By Mouth, Daily, # 30 tablet, 3 Refills, Maintenance, 08/07/21 13:28:00 EDT, Tablet, [facility]/pharmacy #[id number], Partial fill upon [...]
--- OUTSIDE RECORDS SUMMARY | 2022-02-19 22:36 | XMS_ITS | Continuity of Care Document ---
:1960 Author Organization [facility] Address [address] [place] [address]- Care Team Providers Name Role Phone Nicolasa DAVENPORT, Conrado Cleary Primary Care Physician Encounter [facility] Date(s): 08/06/21 - 09/05/21 [facility] [address] [place] [address]- Attending Physician: Admtr, [id number] Admitting Physician: Admtr, [id number] Referring Physician: Admtr, [id number] Allergies, Adverse Reactions, [...] tetanus-diphtheria toxoids (Td) 01/05/06 Given 1Result Comment: [id number] Note: PT RECIEVED SERIES AT WORK Medications [...] 04/02/21 15:18:00 EST, [id number] Never Received Script From 06-11-2015, 166, cm, 04/02/21 14:58:00 EST, Height Start Date: 04/02/21 Status: OrderedmetroNIDAZOLE 0.75% topical cream 1 application, Topically, 2 times a day, # 45 Gm, 3 Refills, Maintenance, 04/02/21 15:18:00 EST, Cream, [facility]/pharmacy #[id number], 1 application Topically 2 times a day, 166, cm, 04/02/21 14:58:00 EST, Height Start Date: 04/02/21 Status: Orderedraloxifene 60 mg oral tablet 1 tablet = 60 mg, By Mouth, Daily, # 30 tablet, 3 Refills, Maintenance, 08/07/21 13:28:00 EDT, [id number] Partial fill upon patient request [...]
--- OUTSIDE RECORDS SUMMARY | 2022-02-19 22:36 | XMS_ITS | Continuity of Care Document ---
:1960 Author Organization [facility] Address [address] [place] [address]- Care Team Providers Name Role Phone Nicolasa DAVENPORT, Conrado Cleary Primary Care Physician [place] [facility] [place] 11[place]24/21 [facility] [address], [place] [address] Allergies, Adverse Reactions, Alerts Substance Reaction Severity [...] tetanus-diphtheria toxoids (Td) 01/05/06 Given 1Result Comment: [id number] Note: PT RECIEVED SERIES AT WORK Medications [...] 04/02/21 15:18:00 EST, Route to Pharmacy Electronically, [facility]/pharmacy #[id number], Pharmacy Never Received Script From 06-11-2015, 166, cm, 04/02/21 14:58:00 EST, Height Start Date: 04/02/21 Status: OrderedmetroNIDAZOLE 0.75% topical cream 1 application, Topically, 2 times a day, # 45 Gm, 3 Refills, Maintenance, 04/02/21 15:18:00 EST, Cream, [facility]/pharmacy #[id number], 1 application Topically 2 times a day, 166, cm, 04/02/21 14:58:00 EST, Height Start Date: 04/02/21 Status: Orderedmirtazapine 15 mg oral tablet 1 tablet = 15 mg, By Mouth, Daily at bedtime, # 30 tablet, 5 Refills, Maintenance, 10/23/21 13:44:00EDT, Tablet, [facility]/pharmacy #[id number], Partial fill upon patient request if the prescription is for a schedule II opioid drug., 162.6, cm, 10/08/21 10:31:00... Start Date: 10/23/21 Status: Orderedraloxifene 60 mg oral tablet 1 tablet = 60 mg, By Mouth, Daily, # 30 tablet, 3 Refills, Maintenance, 08/07/21 13:28:00 EDT, Tablet, [facility]/pharmacy #[id number], Partial fill upon patient request [...]
[2022-02-19 22:52] VITALS: BP 135/74; PULSE 99; RESP 19; O2SAT 100
[2022-02-19] MEDS: Aspirin 81 MG TAB.CHEW PO (23:05)
[2022-02-19 23:09] VITALS: BP 151/83; PULSE 94; RESP 21; TEMP 36.9; O2SAT 100
[2022-02-19] MEDS: Enoxaparin Sodium 40 MG/0.4 ML SYRINGE SUBCUT (23:22)
[2022-02-19] MEDS: 0.9 % Sodium Chloride Flush 3 ML SYRINGE IVFLUSH (23:23)
--- NOTE | 2022-02-19 23:30 | P.HPHOSP_ITS ---
History of Present Illness Date of Service: 02/19/22 Chief Complaint: Facial droop, slurring speech This is a 61-year-old female with pertinent history of essential hypertension, mood disorder who presents to the emergency department for evaluation of facial droop and slurring of speech. Patient states around 815pm while she was lying in bed, her noticed a right-sided facial droop. 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 She also had slurring of speech. Both facial droop and slurring of speech lasted for about 45 minutes before resolving. Patient denies extremity weakness, blurring of vision, headache, jerking movement of extremities, tongue bite, loss of consciousness. No similar symptoms in the past. No history of CVA. Patient also complains of progressive worsening dysphagia over the last 2 days. Patient was evaluated at [facility] for dysphagia and found to have paraesophageal hernia. She has follow-up in May for upper endoscopy as an outpatient. Patient states since being discharged from [facility], her dysphagia has worsened. Initially it was only to solids but now she feels she has sensation of both solid and liquids being stuck in her throat. No odynophagia. Has occasional spasms in the throat. No fever, chills, chest discomfort, palpitations, shortness of breath, abdominal pain, changes in urinary or bowel habits Review of Systems Constitutional: Constitutional: Reports no additional constitutional complaints ENT: Reports dysphagia Cardiovascular: Cardiovascular: Reports no additional cardiovascular complaints Respiratory: Respiratory: Reports no additional respiratory complaints Gastrointestinal: Gastrointestinal: Reports dysphagia Neurologic: Reports Abnormal speech present [facility] Medical History (Updated 02/19/22 @ 23:40 by Omar Pool MD) Atypical hyperplasia of breast Essential hypertension Mood disorder Paraesophageal hernia Social History Alcohol intake: current Alcohol intake frequency: holidays/special occasions only Alcohol type: wine Smoked in Last 30 Days: No Use of substances other than those prescribed or required for medical reasons: No Advance Directives: No Meds Allergies Allergy/AdvReac Type Severity Reaction Status Date / Time sulfamethoxazole Allergy Intermediate rash Verified 02/19/22 21:41 [From Bactrim] trimethoprim [From Bactrim] Allergy Intermediate rash Verified 02/19/22 21:41 Active Medications: Current Medications Acetaminophen (Acetaminophen 325 Mg Tablet) 650 mg PO Q6H PRN PRN Reason: Pain, Mild (Pain Scale 1-3) Enoxaparin Sodium (Enoxaparin Sodium 40 Mg/0.4 Ml Syringe) 40 mg SUBCUT Q24H [facility] Last Admin: 02/19/22 23:22 Dose: 40 mg Melatonin (Melatonin 3 Mg Tablet) 6 mg PO BEDTIME PRN PRN Reason: insomnia Ondansetron HCl (Ondansetron Hcl 4 Mg/2 Ml Vial) 4 mg IVPUSH Q8H PRN PRN Reason: nausea Pharmacy Consult (Consult Rx Perform Med Rec) 1 each MISCELLANE ONCE PRN PRN Reason: Consult order Pharmacy Consult (Consult Rx Perform Med Rec) 1 each MISCELLANE ONCE PRN PRN Reason: Consult order Sodium Chloride (0.9 % Sodium Chloride Flush 3 Ml Syringe) 3 ml IVFLUSH QSHIFT [facility] Last Admin: 02/19/22 23:23 Dose: 3 ml Physical Exam Vital Signs and Narrative: Vital Signs: Last Vital Signs Temp 98.4 F 02/19/22 23:09 Pulse 94 02/19/22 23:09 Resp 21 H 02/19/22 23:09 BP 151/83 H 02/19/22 23:09 Pulse Ox 100 02/19/22 23:09 O2 Del Method 02/19/22 23:09 BMI result Body Mass Index 25.7 Middle-aged female lying in bed in no distress Neck supple, no JVD, left sided neck swelling Regular rate and rhythm, S1-S2 heard Regular breath sounds bilaterally, no wheezing or crackles appreciated Abdomen soft nontender, no guarding, no rigidity Patient is awake, alert and oriented to self, place, time and person ; strength 5/5 in bilateral upper and lower extremity, no pronator drift, tongue midline, normal shoulder shrug, no facial droop, sensation normal Psych: Normal mood No pedal edema Neuro: Speech: Abnormal speech present Results Labs CBC and Chem 7: 02/19/22 21:58 02/19/22 21:58 Labs: Laboratory Results - last 24 hr 02/19/22 02/19/22 02/19/22 21:36 21:36 21:58 MCV 88.2 MCH 31.0 MCHC 35.1 H RDW 11.7 Plt Count 245 MPV 10.0 Immature Gran % (Auto) 0.0 Neut % (Auto) 47.0 Lymph % (Auto) 42.2 H Coleman % (Auto) 7.3 Eos % (Auto) 3.2 Baso % (Auto) 0.3 Lymph # (Auto) 1.5 Coleman # (Auto) 0.3 Eos # (Auto) 0.1 Baso # (Auto) 0.0 Abs Immat Gran (auto) 0.00 Absolute Neuts (auto) 1.6 L Absolute Nucleated RBC 0.000 Nucleated RBC % (auto) 0.0 PT Whole Blood PT 12.9 INR Whole Blood INR 1.1 APTT Anion Gap Estim Creat Clear Calc Estimated GFR POC Glucose 98 Random Glucose Calcium Total Creatine Kinase Troponin I High Sens COVID-19 ([facility]) COVID-19 Clin Com 02/19/22 02/19/22 02/19/22 21:58 21:58 21:58 MCV MCH MCHC RDW Plt Count MPV Immature Gran % (Auto) Neut % (Auto) Lymph % (Auto) Coleman % (Auto) Eos % (Auto) Baso % (Auto) Lymph # (Auto) Coleman # (Auto) Eos # (Auto) Baso # (Auto) Abs Immat Gran (auto) Absolute Neuts (auto) Absolute Nucleated RBC Nucleated RBC % (auto) PT 11.4 Whole Blood PT INR 1.0 Whole Blood INR APTT 40.8 H Anion Gap 16 Estim Creat Clear Calc 63.6 Estimated GFR > 60 POC Glucose Random Glucose 125 H Calcium 8.8 Total Creatine Kinase 30 Troponin I High Sens < 3.5 COVID-19 ([facility]) COVID-19 Clin Com 02/19/22 21:58 MCV MCH MCHC RDW Plt Count MPV Immature Gran % (Auto) Neut % (Auto) Lymph % (Auto) Coleman % (Auto) Eos % (Auto) Baso % (Auto) Lymph # (Auto) Coleman # (Auto) Eos # (Auto) Baso # (Auto) Abs Immat Gran (auto) Absolute Neuts (auto) Absolute Nucleated RBC Nucleated RBC % (auto) PT Whole Blood PT INR Whole Blood INR APTT Anion Gap Estim Creat Clear Calc Estimated GFR POC Glucose Random Glucose Calcium Total Creatine Kinase Troponin I High Sens COVID-19 ([facility]) Negative COVID-19 Clin Com See Note Imaging Radiologist's Impressions: Impressions Head CT 02/19/22 21:47 IMPRESSION: No acute intracranial pathology. This critical result was discussed with Ladonna Casas at 10:08 PM on 02/19/2022. It was ascertained that the content and urgency of the report was understood at the time of direct communication. Chest X-Ray 02/19/22 22:15 IMPRESSION: Unremarkable examination. Assessment and Plan (1) Transient cerebral ischemia: Status: Acute (2) Paraesophageal hernia: Status: Acute (3) Essential hypertension: Status: Acute (4) Mood disorder: Status: Acute (5) Atypical hyperplasia of breast: Status: Acute (6) Dysphagia: Status: Acute Plan This is a 61-year-old female with pertinent history of essential hypertension, mood disorder who presents to the emergency department for evaluation of facial droop and slurring of speech. #. TIA -facial droop and slurred speech concerning for TIA. Will admit patient with telemetry monitor. Initiating DAPT for secondary prevention as ABCD2 score is 4. Obtaining MRI of the brain and consulting neurology, appreciate assistance. Obtaining transthoracic echocardiogram, carotid ultrasound, A1c and lipid panel to complete workup. #. Dysphagia - Evaluated at [facility] and noted to have paraesophageal hernia but patient states her dysphagia has been progressive in the last 2 days. Consulting GI. #. HTN -continue home antihypertensives #. Mood disorder -continue home po medication #. 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 #. Left sided neck swelling -has been evaluated at [facility] with CT scan. Obtain records Med rec pending DVT prophylaxis: Lovenox 40 mg daily Full code NPO until patient passes bedside swallow screen Admit as inpatient and will require two night minimum hospital stay for stroke workup. Also GI evaluation pending for dysphagia. Quality Stroke Does the patient have a stroke diagnosis?: No VTE Prior VTE?: No VTE Risk Level:: Medical - moderate - high VTE Device Contraindication: Treatment Not Indicated VTE Drug Contraindication: N/A - Med Ordered
[2022-02-19 23:58] LABS: Cholesterol 220 mg/dL; HDL Cholesterol 44 mg/dL; LDL Cholesterol Calculated 156 mg/dl; Triglycerides 104 mg/dL
[2022-02-20 00:04] VITALS: BP 137/78; PULSE 78; RESP 20; TEMP 36.4; O2SAT 98
[2022-02-20] MEDS: Clopidogrel Bisulfate 75 MG TABLET PO ×2 (00:42→10:06)
[2022-02-20 04:53] VITALS: BP 132/72; PULSE 79; RESP 24; TEMP 36.4; O2SAT 100
[2022-02-20 05:50] LABS: Estimated Average Glucose 97 mg/dL
--- NOTE | 2022-02-20 06:04 | PC.NURSE ---
pt is NPO due to swallowing problems , she couldnt sleep much it was bothering her throughout the night.she walks to the bathroom..
[2022-02-20] MEDS: Pantoprazole Sodium 40 MG/10 ML VIAL IVPUSH (06:31)
--- NOTE | 2022-02-20 07:00 | CA_ITS ---
Transthoracic Echocardiogram Patient (Last, First, Middle): Rosaura Barboza M Gender: Female Date of : 1960 Age: 61 Procedure Date: 02/20/2022 Procedure Type: Transthoracic Echocardiogram Location: ER Height: 162.56 cm Weight: 68.04 kg BSA: 1.73 m2 Heart Rate: 74 bpm BP: 127 / 78 mmHg Print Binding And Finishing Worker: ALY Referring MD: Omar Pool MD Symptoms: stroke Study Quality: Adequate ECG Rhythm: Sinus Conclusions: - Normal left ventricular size, thickness, systolic function, and wall motion. The visually estimated ejection fraction is between 55-60%. Diastolic function is normal for age. - The left atrium is mildly dilated. There is no evidence of interatrial shunt by color Doppler. The right atrium is normal in size. Findings Left Ventricle Normal left ventricular size, thickness, systolic function, and wall motion. The visually estimated ejection fraction is between 55-60%. Diastolic function is normal for age. Right Ventricle Normal right ventricular cavity size and systolic function. Atria The left atrium is mildly dilated. There is no evidence of interatrial shunt by color Doppler. The right atrium is normal in size. Aortic Valve Normal aortic valve structure and function. There is no aortic valve stenosis. There is no aortic valve regurgitation. Mitral Valve The mitral valve appears normal. There is no mitral valve regurgitation. There is no mitral valve stenosis. Pulmonic Valve Normal pulmonic valve structure and function. There is trace pulmonic valve regurgitation. Tricuspid Valve Normal tricuspid valve structure. There is trace tricuspid valve regurgitation. The right ventricular systolic pressure is 20 mmHg. Normal right atrial pressure. There is no evidence of pulmonary hypertension. Great Vessels All visible segments of the aorta are normal in size. The visualized portions of the pulmonary artery and branches are normal. Venous The inferior vena cava is normal in size and collapses greater than 50% with inspiration. Pericardium/Pleural There is no evidence of pericardial effusion. Prior Study Comparison No prior study available for comparison. Measurements 2D Linear Measurements IVSd: 0.66 0.6-0.9/0.6-1.0 cm LVIDd: 4.56 3.9-5.3/4.2-5.9 cm LVIDd Index: 2.64 2.4-3.2/2.2-3.1 cm/m2 LVIDs: 2.97 2.0-3.6 cm LVPWd: 0.96 0.7-1.1 cm LA Diam: 3.40 2.7-3.8/3.0-4.0 cm LAIDs Index: 1.97 1.5-2.3 cm/m2 LV Mass: 147.22 67-162/88-224 g LV Mass Index: 85.10 43-95/49-115 g/m2 LVOT Diam: 1.90 3.0+(-)1.3 cm 2D Systolic Function EF 4C: 58.60 >55% EF 2C: 52.00 >55% EF BiP: 55.50 >55% Mitral Valve MV Pk E: 0.69 MV PK A: 0.71 MV Decel Time: 227.00 E/A: 1.00 E'Lateral: 9.96 E'Medial: 8.92 E/E' Med: 7.80 E/E' Lat: 7.00 PHT: 67.00 MVA PHT: 3.28 Decel Foster: 3.06 Aortic Valve AoV Pk Eric: 1.25 AoV Mn Eric: 0.78 AoV VTI: 0.24 AoV Pk Grad: 6.00 Aov Mn Grad: 3.00 ROJELIO Cont.VTI: 2.53 LVOT LVOT Pk Eric: 1.12 LVOT Mn Eric: 0.72 LVOT VTI: 0.21 LVOT Pk Grad: 5.00 LVOT Mn Grad: 2.00 LVOT Diam: 1.90 LVOT Area: 2.84 Diastolic Function MV Pk E: 0.69 MV Pk A: 0.71 E/A: 1.00 E'Medial: 8.92 E/E' Med: 7.80 E' Laterial: 9.96 E/E' Lat: 7.00 Right Ventricle TAPSE (mm): 19.50 TVS' Eric: 12.10 Tricuspid Valve TR Pk Eric: 2.07 TR Pk Grad: 17.00 RA Press: 3.00 RVSP: 20.00 Great Vessels Aorta Sinus of Valsalva: 3.10 2.0-3.5 cm Ao Asc: 2.90 2.1-3.4 cm Pulmonary Valve PV Pk Eric: 0.89 Peak PV Grad: 3.00 Updated in Other Vendor System with Status of Final Beka Patterson MD electronically signed on 02/21/2022 10:57:23 AM with status of Final
--- NOTE | 2022-02-20 08:11 | PHA.MEDREC ---
Pharmacy Consult ? Medication Reconciliation Pharmacy has completed the medication reconciliation. Patient confirmed all medications. Reports no longer taking Raloxifene. She stopped to see if these were causing some health issues months ago, has been speaking to her provider about this. Patient does not take mirtazepine. Zahraa Mendoza, pharmD
[2022-02-20] MEDS: Cyanocobalamin (Vitamin B-12) 1,000 MCG TABLET 1000 MCG PO (10:07)
[2022-02-20] MEDS: Aspirin Enteric Coated 81 MG TABLET.DR PO (10:08)
[2022-02-20] MEDS: 0.9 % Sodium Chloride Flush 3 ML SYRINGE IVFLUSH ×3 (10:09→20:22)
[2022-02-20 10:10] VITALS: BP 129/70; PULSE 91; RESP 18; O2SAT 97
--- NOTE | 2022-02-20 11:01 | MHC.CM.PN ---
Met with patient and , [facility] in regards to discharge planning. Patient lives with [facility], ambulates independently and had no services prior to coming to the hospital. No services anticipated to be needed because patient is not homebound. PCP verified. Copy of HCP obtained from [facility]. Patient received 3 Pfizer vaccines. [facility] will transport patient home when medically stable. Continue to monitor for d/c needs.
--- NOTE | 2022-02-20 13:22 | P.PNIM_ITS ---
Subjective Subjective Date of Service: 02/20/22 Interval History: C/o progressive dysphagia to both solids and liquids, denies speech impairment, no headache, no dizziness, no other neurological deficit, no fevers no chills denies similar symptoms in the past. Review of Systems Worsening dysphagia and last couple days to both solids and liquids No nausea no vomiting no abdominal pain Denies chest pain, no palpitation Review of Systems: Yes all other systems are reviewed and are negative Physical Exam Vital Signs: Vital Signs: Last Vital Signs Temp 97.6 F 02/20/22 04:53 Pulse 91 02/20/22 10:10 Resp 18 02/20/22 10:10 BP 129/70 02/20/22 10:10 Pulse Ox 97 02/20/22 10:10 O2 Del Method 02/20/22 04:53 BMI result Body Mass Index 25.7 Const: Other: General awake alert x3, resting comfortably in no acute distress. Anicteric sclera Neck no JVD. CVS regular rate rhythm, Respiratory lungs clear to auscultation, no respiratory distress, no wheeze, no rhonchi. Gastrointestinal abdomen soft, nontender, bowel sounds audible, no guarding , no rigidity. Extremities no edema. Neuro awake alert x3, speech clear, no motor deficit no pronator drift. Skin no rash Objective Data Active Medications Acetaminophen (Acetaminophen 325 Mg Tablet) 650 mg PO Q6H PRN PRN Reason: Pain, Mild (Pain Scale 1-3) Aspirin (Aspirin Enteric Coated 81 Mg Tablet.) 81 mg PO DAILY [facility] Last Admin: 02/20/22 10:08 Dose: 81 mg Documented By: DELANEY Clopidogrel Bisulfate (Clopidogrel Bisulfate 75 Mg Tablet) 75 mg PO DAILY [facility] Last Admin: 02/20/22 10:06 Dose: 75 mg Documented By: DELANEY Cyanocobalamin (Cyanocobalamin (Vitamin B-12) 1,000 Mcg Tablet) 1,000 mcg PO DAILY [facility] Last Admin: 02/20/22 10:07 Dose: 1,000 mcg Documented By: DELANEY Enoxaparin Sodium (Enoxaparin Sodium 40 Mg/0.4 Ml Syringe) 40 mg SUBCUT Q24H [facility] Last Admin: 02/19/22 23:22 Dose: 40 mg Documented By: MARGARITA Melatonin (Melatonin 3 Mg Tablet) 6 mg PO BEDTIME PRN PRN Reason: insomnia Omeprazole (Omeprazole 20 Mg Capsule.Dr) 20 mg PO DAILY@629 [facility] Last Admin: 02/20/22 10:08 Dose: Not Given Documented By: DELANEY Non-Admin Reason: Patient Refused Ondansetron HCl (Ondansetron Hcl 4 Mg/2 Ml Vial) 4 mg IVPUSH Q8H PRN PRN Reason: nausea Pantoprazole Sodium (Pantoprazole Sodium 40 Mg/10 Ml Vial) 40 mg IVPUSH DAILY@629 [facility] Last Admin: 02/20/22 06:31 Dose: 40 mg Documented By: MARGARITA Pharmacy Consult (Consult Rx Perform Med Rec) 1 each MISCELLANE ONCE PRN PRN Reason: Consult order Sodium Chloride (0.9 % Sodium Chloride Flush 3 Ml Syringe) 3 ml IVFLUSH QSHIFT [facility] Last Admin: 02/20/22 10:09 Dose: 3 ml Documented By: DELANEY Labs CBC & Chem 7: 02/19/22 21:58 02/19/22 21:58 Labs: Laboratory Results - last 24 hr 02/19/22 02/19/22 02/19/22 21:36 21:36 21:58 MCV 88.2 MCH 31.0 MCHC 35.1 H RDW 11.7 Plt Count 245 MPV 10.0 Immature Gran % (Auto) 0.0 Neut % (Auto) 47.0 Lymph % (Auto) 42.2 H [place] % (Auto) 7.3 Eos % (Auto) 3.2 Baso % (Auto) 0.3 Lymph # (Auto) 1.5 [place] # (Auto) 0.3 Eos # (Auto) 0.1 Baso # (Auto) 0.0 Abs Immat Gran (auto) 0.00 Absolute Neuts (auto) 1.6 L Absolute Nucleated RBC 0.000 Nucleated RBC % (auto) 0.0 PT Whole Blood PT 12.9 INR Whole Blood INR 1.1 APTT Anion Gap Estim Creat Clear Calc Estimated GFR POC Glucose 98 Random Glucose Estimat Average Glucose Hemoglobin A1c % Calcium Total Creatine Kinase Troponin I High Sens Triglycerides Cholesterol LDL Cholesterol, Calc HDL Cholesterol COVID-19 ([facility]) COVID-19 Clin Com 02/19/22 02/19/22 02/19/22 21:58 21:58 21:58 MCV MCH MCHC RDW Plt Count MPV Immature Gran % (Auto) Neut % (Auto) Lymph % (Auto) [place] % (Auto) Eos % (Auto) Baso % (Auto) Lymph # (Auto) [place] # (Auto) Eos # (Auto) Baso # (Auto) Abs Immat Gran (auto) Absolute Neuts (auto) Absolute Nucleated RBC Nucleated RBC % (auto) PT 11.4 Whole Blood PT INR 1.0 Whole Blood INR APTT 40.8 H Anion Gap 16 Estim Creat Clear Calc 63.6 Estimated GFR > 60 POC Glucose Random Glucose 125 H Estimat Average Glucose Hemoglobin A1c % Calcium 8.8 Total Creatine Kinase 30 Troponin I High Sens < 3.5 Triglycerides Cholesterol LDL Cholesterol, Calc HDL Cholesterol COVID-19 ([facility]) COVID-19 Clin Com 02/19/22 02/19/22 02/19/22 21:58 23:19 23:19 MCV MCH MCHC RDW Plt Count MPV Immature Gran % (Auto) Neut % (Auto) Lymph % (Auto) [place] % (Auto) Eos % (Auto) Baso % (Auto) Lymph # (Auto) [place] # (Auto) Eos # (Auto) Baso # (Auto) Abs Immat Gran (auto) Absolute Neuts (auto) Absolute Nucleated RBC Nucleated RBC % (auto) PT Whole Blood PT INR Whole Blood INR APTT Anion Gap Estim Creat Clear Calc Estimated GFR POC Glucose Random Glucose Estimat Average Glucose 97 Hemoglobin A1c % 5.0 Calcium Total Creatine Kinase Troponin I High Sens Triglycerides 104 Cholesterol 220 LDL Cholesterol, Calc 156 HDL Cholesterol 44 COVID-19 ([facility]) Negative COVID-19 Clin Com See Note Assessment and Plan (1) Anxiety disorder: Status: Acute (2) Cerebral microvascular disease: Status: Acute (3) Dysphagia: Status: Acute (4) Essential hypertension: Status: Acute (5) Mood disorder: Status: Acute Plan 61-year-old female with pertinent history of essential hypertension, mood disorder who presents to the emergency department for evaluation of facial droop and slurring of speech. # transient neurological deficit with right Facial droop and slurred speech Symptoms resolved CT head showed no acute abnormality MRI brain showed punctate acute infarction within the posterior limb of the right internal capsule, moderate underlying microangiopathy and generalized cerebral volume loss MRI findings unable to explain patient right-sided facial droop and speech impairment echocardiogram report pending, carotid ultrasound showed no stenosis,HBA1c 5 and lipid panel showed total cholesterol 220 and LDL of 156. Patient seen by Dr. Manley from Neurology he recommend antiplatelet agent, statin and blood pressure control he also recommend to check anticardiolipin antibody and lupus anticoagulant due to significant microvascular disease with good pressure control and no hx of alcoholism. #. Dysphagia -? progressive dysphagia to both solids and liquids, Evaluated at [facility] and noted to have paraesophageal hernia and scheduled to undergo upper endoscopy in May Will place on clear liquid diet , await GI consult #. HTN - continue lisinopril 5 mg home dose #. Mood disorder small dose Sertraline 25 mg recommended by Neurology for symptoms of anxiety. Will discuss with patient #. 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 #. Left sided neck swelling -has been evaluated at [facility] with CT scan follow rec. DVT prophylaxis: Lovenox 40 mg daily Full code Will require continued inpatient hospitalization for further workup for dysphagia Quality Stroke Does the patient have a stroke diagnosis?: No VTE Prior VTE?: No VTE Risk Level:: Medical - moderate - high VTE Device Contraindication: Treatment Not Indicated VTE Drug Contraindication: N/A - Med Ordered
--- NOTE | 2022-02-20 14:05 | P.CNNE_ITS ---
History of Present Illness Data of Consult Service Date: 02/20/22 Primary Care Provider: Conrado Baldwin MD HPI Reason for consult: Possible stroke 61 years old woman with probably underlying depression anxiety, breast cancer, and dysphagia related to esophageal disease and hernia. She was being investigated [facility] and was supposed to get endoscopy in May. She came to hospital after she woke up today and started coughing. At 1 point her speech was noted to be slurred and her noted that her right side of face was flat. There was no headache. The symptoms got better in emergency room. She denied having such symptoms in the past. Review of Systems Review of Systems: No recent cold or flu-like illness PMFSH Past Medical History Medical History (Updated 02/20/22 @ 14:08 by John Manley MD) Atypical hyperplasia of breast Essential hypertension Mood disorder Paraesophageal hernia Social History Social History Alcohol intake: current Alcohol intake frequency: holidays/special occasions only Alcohol type: wine Smoked in Last 30 Days: No Use of substances other than those prescribed or required for medical reasons: No Advance Directives: Yes Advance Directives on File: Yes Advance Directives Date on File: 02/20/22 service: No Current occupational status: retired Meds Allergies Allergy/AdvReac Type Severity Reaction Status Date / Time sulfamethoxazole Allergy Intermediate rash Verified 02/19/22 21:41 [From Bactrim] trimethoprim [From Bactrim] Allergy Intermediate rash Verified 02/19/22 21:41 Active Medications: Current Medications Acetaminophen (Acetaminophen 325 Mg Tablet) 650 mg PO Q6H PRN PRN Reason: Pain, Mild (Pain Scale 1-3) Aspirin (Aspirin Enteric Coated 81 Mg Tablet.) 81 mg PO DAILY [facility] Last Admin: 02/20/22 10:08 Dose: 81 mg Clopidogrel Bisulfate (Clopidogrel Bisulfate 75 Mg Tablet) 75 mg PO DAILY [facility] Last Admin: 02/20/22 10:06 Dose: 75 mg Cyanocobalamin (Cyanocobalamin (Vitamin B-12) 1,000 Mcg Tablet) 1,000 mcg PO DAILY [facility] Last Admin: 02/20/22 10:07 Dose: 1,000 mcg Enoxaparin Sodium (Enoxaparin Sodium 40 Mg/0.4 Ml Syringe) 40 mg SUBCUT Q24H [facility] Last Admin: 02/19/22 23:22 Dose: 40 mg Melatonin (Melatonin 3 Mg Tablet) 6 mg PO BEDTIME PRN PRN Reason: insomnia Omeprazole (Omeprazole 20 Mg Capsule.Dr) 20 mg PO DAILY@629 [facility] Last Admin: 02/20/22 10:08 Dose: Not Given Ondansetron HCl (Ondansetron Hcl 4 Mg/2 Ml Vial) 4 mg IVPUSH Q8H PRN PRN Reason: nausea Pantoprazole Sodium (Pantoprazole Sodium 40 Mg/10 Ml Vial) 40 mg IVPUSH DAILY@629 [facility] Last Admin: 02/20/22 06:31 Dose: 40 mg Pharmacy Consult (Consult Rx Perform Med Rec) 1 each MISCELLANE ONCE PRN PRN Reason: Consult order Sodium Chloride (0.9 % Sodium Chloride Flush 3 Ml Syringe) 3 ml IVFLUSH QSHIFT [facility] Last Admin: 02/20/22 10:09 Dose: 3 ml Home Medications Medication Instructions Recorded Confirmed Last Taken Type cyanocobalamin (vitamin B-12) 1,000 mcg PO DAILY 02/20/22 02/20/22 02/19/22 History 1,000 mcg tablet lisinopril 5 mg tablet 1 tab PO DAILY 02/20/22 02/20/22 02/19/22 History omeprazole 20 mg tablet,delayed 20 mg PO DAILY 02/20/22 02/20/22 02/19/22 History release Physical Exam Vital Signs: Vital Signs: Last Vital Signs Temp 97.6 F 02/20/22 04:53 Pulse 91 02/20/22 10:10 Resp 18 02/20/22 10:10 BP 129/70 02/20/22 10:10 Pulse Ox 97 02/20/22 10:10 O2 Del Method 02/20/22 04:53 BMI result Body Mass Index 25.7 Neuro: Other: She is alert and awake with normal spontaneity of speech fluency comprehension and anxious affect. There is mild right-sided facial flatness. Visual gandhi are full to confrontation. There is no pronator drift. Deep tendon reflexes are trace with flexor plantars. Results Labs CBC & Chem 7: 02/19/22 21:58 02/19/22 21:58 Labs: Short CBC 02/19/22 Range/Units 21:58 WBC 3.4 L (4.8-10.8) X10*3/uL Hgb 13.7 (12.0-16.0) g/dl Hct 39.0 (37.0-47.0) % Plt Count 245 (160-400) X10*3/uL BMP 02/19/22 21:58 Sodium 141 Potassium 3.9 Chloride 108 Carbon Dioxide 21 L BUN 11 Creatinine 0.88 Calcium 8.8 Cardiac Enzymes 02/19/22 Range/Units 21:58 Total Creatine Kinase 30 (26-140) U/L Noncontrast head CT and MRI of brain reviewed. Moderate amount of microvascular ischemic changes were noted including in brainstem. Assessment and Plan (1) Cerebral microvascular disease: Status: Acute 61 years old woman with underlying history of breast cancer, anxiety and probably also depression, going through investigations were dysphagia related to esophageal disease and hernia, came to hospital with right-sided facial flatness and slurred speech. Her examination now revealed mild right-sided facial flatness but MRI of brain also reveals significant amount of microvascular chronic ischemic disease. Radiologist also suggested a punctate right posterior limb of internal capsular lesion, which would not explain her symptoms. In any case she stated that her blood pressure was relatively controlled and there was no other significant risk factor for vascular disease implying that this might be genetic tendency to have microvascular disease. Usual causes of this type of microvascular disease was uncontrolled hypertension or complications of alcohol abuse. He denied any significant amount of alcohol use. My recommendation at this time is to treat her with anti-platelet agents, statin, blood pressure control but also investigate for any underlying condition resulting in strokes. Appropriate cardiac testing is recommended including at least EKG and echocardiogram. I would also recommend to check for cardiolipin antibodies and lupus anticoagulant. She was educated about all this and was also advised to take care of her anxiety and consider taking small dose of an SSRI such as sertraline 25 mg daily (2) Anxiety disorder: Status: Acute Procedures Date of Service Date of Service: 02/20/22
--- NOTE | 2022-02-20 15:00 | MHC.STROKE ---
Addendum entered by Zahra aMrley RN 02/20/22 15:12: PATIENT EXCLUDED FROM REHAB MEASURE, ASSESSED AND SHE IS AMBULATING WITHOUT DIFFICULTY TO THE BATHROOM, 100FT. Original Note: 02/19/222124 [facility] CALLED IN STROKE ALERT, ARRIVED AT 2131.EXAMINED BY DR MATA AND STROKE PROTOCOL ACTIVATED, DIRECT TO CT. ONSET OF RIGHT DRROP, RIGHT HAND WEAKNESS, AND SLURRED SPEECH AT 2014. SYMPTOMS RESOLVED UPON ARRIVAL. NIHSS = 0. SHE IS HYPERTENSIVE.165/97. CT NO BLEED, PASSED SWALLOW SCREEN. SHE WAS ADMITTED FOR TIA. MRI DONE TODAY, AND PATIENT WAS SEEN BY DR LESLIE, THERE IS A ?SMALL RIGHT INTERNAL CAPSULE POST-LIMB INFARCT ON RADIOLOGY REPORT BUT THIS DOES NOT CORRELATE WITH HER SYMPTOMS. SHE HAS CONSIDERABLE MICROVASCULAR DISEASE. I DID MEET WITH HER AND REVIEWED THE MRI AND GAVE HER A SCREEN SHOT OF THE DWI AND [id number] SEQUENCE AND EXPLAINED THIS TO HER. 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 THESE RISK FACTORS WERE REVIEWED AND STROKE EDUCATION BOOKLET REVIEWED, I PROVIDED EDUCATION AND SUPPORT PLUS HIGHLIGHTED THINGS SHE CAN DO TO RELIEVE HER STRESS.
--- NOTE | 2022-02-20 15:14 | PC.NURSE ---
assumed care of pt at 1500, RN-RN report given by prior nurse, pt pending transport.
--- NOTE | 2022-02-20 15:32 | P.CNGI_ITS ---
History of Present Illness Data of Consult Service Date: 02/20/22 Requesting physician: Jessica Becerril Primary Care Provider: Conrado Baldwin MD HPI This is a 61-year-old female with past medical history of atypical hyperplasia of breast, anxiety, recent dysphagia, who presented to the hospital for neurological deficits. Gastroenterology has been consulted for worsening dysphagia. Patient reports that her symptoms started in December, initially to solids such as before check it. Gradually progressed to where she has difficulty with liquids as well such as water or her own saliva. Associated with throat discomfort that she describes as tightness and pressure while she is swallowing. Does not report nausea, vomiting, regurgitation or unintentional weight loss. Appetite is good. No changes in bowel habits. Denies any chest pain, shortness of breath, hoarseness of voice. For the past 2 days, she consistently has a sensation of pressure in her throat. Able to tolerate her secretions, and does not have any trouble with thick liquids yesterday. Was seen in [facility] for similar symptoms in January and was told she has a paraesophageal hernia. She was also scheduled for an outpatient EGD in May 2022. She presented to [facility] last night for sudden onset of facial drooping and slurring of speech. She is currently admitted in the hospital for neurological evaluation and is NPO. Patient also started on DAPT, last dose of plavix was this morning. Does not smoke or drink. No fam hx of esophageal or stomach ca. Most recent endoscopy: Colonoscopy ([facility]Dr. Skaggs) last year that showed 2 polyps. She was told to return in 7 years. Review of Systems Review of Systems: Yes all other systems are reviewed and are negative [facility] Past Medical History Medical History Atypical hyperplasia of breast Essential hypertension Mood disorder Paraesophageal hernia Social History Social History Alcohol intake: current Alcohol intake frequency: holidays/special occasions only Alcohol type: wine Smoked in Last 30 Days: No Use of substances other than those prescribed or required for medical reasons: No Advance Directives: Yes Advance Directives on File: Yes Advance Directives Date on File: 02/20/22 service: No Current occupational status: retired Meds Allergies Allergy/AdvReac Type Severity Reaction Status Date / Time sulfamethoxazole Allergy Intermediate rash Verified 02/19/22 21:41 [From Bactrim] trimethoprim [From Bactrim] Allergy Intermediate rash Verified 02/19/22 21:41 Active Medications: Current Medications Acetaminophen (Acetaminophen 325 Mg Tablet) 650 mg PO Q6H PRN PRN Reason: Pain, Mild (Pain Scale 1-3) Aspirin (Aspirin Enteric Coated 81 Mg Tablet.) 81 mg PO DAILY [facility] Last Admin: 02/20/22 10:08 Dose: 81 mg Clopidogrel Bisulfate (Clopidogrel Bisulfate 75 Mg Tablet) 75 mg PO DAILY [facility] Last Admin: 02/20/22 10:06 Dose: 75 mg Cyanocobalamin (Cyanocobalamin (Vitamin B-12) 1,000 Mcg Tablet) 1,000 mcg PO DAILY [facility] Last Admin: 02/20/22 10:07 Dose: 1,000 mcg Enoxaparin Sodium (Enoxaparin Sodium 40 Mg/0.4 Ml Syringe) 40 mg SUBCUT Q24H [facility] Last Admin: 02/19/22 23:22 Dose: 40 mg Lisinopril (Lisinopril 5 Mg Tablet) 5 mg PO DAILY [facility]; Protocol Melatonin (Melatonin 3 Mg Tablet) 6 mg PO BEDTIME PRN PRN Reason: insomnia Omeprazole (Omeprazole 20 Mg Capsule.) 20 mg PO DAILY@0630 [facility] Last Admin: 02/20/22 10:08 Dose: Not Given Ondansetron HCl (Ondansetron Hcl 4 Mg/2 Ml Vial) 4 mg IVPUSH Q8H PRN PRN Reason: nausea Pharmacy Consult (Consult Rx Perform Med Rec) 1 each MISCELLANE ONCE PRN PRN Reason: Consult order Sodium Chloride (0.9 % Sodium Chloride Flush 3 Ml Syringe) 3 ml IVFLUSH QSHIFT [facility] Last Admin: 02/20/22 10:09 Dose: 3 ml Home Medications Medication Instructions Recorded Confirmed Last Taken Type cyanocobalamin (vitamin B-12) 1,000 mcg PO DAILY 02/20/22 02/20/22 02/19/22 History 1,000 mcg tablet lisinopril 5 mg tablet 1 tab PO DAILY 02/20/22 02/20/22 02/19/22 History omeprazole 20 mg tablet,delayed 20 mg PO DAILY 02/20/22 02/20/22 02/19/22 History release Physical Exam Vital Signs: Vital Signs: Last Vital Signs Temp 97.6 F 02/20/22 04:53 Pulse 91 02/20/22 10:10 Resp 18 02/20/22 10:10 BP 129/70 02/20/22 10:10 Pulse Ox 97 02/20/22 10:10 O2 Del Method 02/20/22 04:53 BMI result Body Mass Index 25.7 Gen appear: No acute distress, well nourished HEENT: no icterus Chest: No overt resp distress CVS: S1/S2, regular Abd: soft, nontender, nondistended Psych: Stable affect, answering questions appropriately Neuro: A/Ox3 noted to move all extremities spontaneously Ext: no peripheral edema Results Labs CBC & Chem 7: 02/19/22 21:58 02/19/22 21:58 Labs: Short CBC 02/19/22 Range/Units 21:58 WBC 3.4 L (4.8-10.8) X10*3/uL Hgb 13.7 (12.0-16.0) g/dl Hct 39.0 (37.0-47.0) % Plt Count 245 (160-400) X10*3/uL BMP 02/19/22 21:58 Sodium 141 Potassium 3.9 Chloride 108 Carbon Dioxide 21 L BUN 11 Creatinine 0.88 Calcium 8.8 Cardiac Enzymes 02/19/22 Range/Units 21:58 Total Creatine Kinase 30 (26-140) U/L Assessment and Plan (1) Dysphagia: Status: Acute (2) Paraesophageal hernia: Status: Acute (3) Globus sensation: Status: Acute Plan Patient reports progressive dysphagia and globus sensation. Differentials include neurogenic dysphagia, cricopharyngeal stenosis, esophageal diverticulum, ring/web, stricture, esophagitis, mass. Recent Plavix use this morning limits therapeutic upper endoscopy. Will proceed with a barium swallow first to determine any gross anatomical abnormality or dysmotility. EGD can then be scheduled inpatient vs outpatient after plavix washout depending on findings on the XR. Recommendations: - Barium esophagogram - Diet as per ST eval - Aspiration precautions Recommendations reviewed with the hospitalist. Thank you for allowing me to participate in Ms Barboza's care. Procedures Date of Service Date of Service: 02/20/22
[2022-02-20 15:37] VITALS: BP 143/80; PULSE 77; RESP 19; TEMP 36; O2SAT 99
[2022-02-20 19:27] VITALS: BP 171/89; PULSE 85; RESP 19; TEMP 36.1; O2SAT 97
[2022-02-20 23:47] VITALS: BP 160/85; PULSE 101; RESP 16; TEMP 36.5; O2SAT 100
--- NOTE | 2022-02-21 | ECG_ITS ---
Test Reason : cp Blood Pressure : / mmHG Vent. Rate : 085 BPM Atrial Rate : 085 BPM P-R Int : 136 ms QRS Dur : 080 ms QT Int : 354 ms P-R-T Axes : 026 031 044 degrees QTc Int : 421 ms Normal sinus rhythm Normal ECG When compared with ECG of 19-FEB-2022 21:52, No significant change was found Referred By: Marilee Pool Electronically Signed By:ALDA COBB MD
[2022-02-21] MEDS: Acetaminophen 325 MG TABLET 650 MG PO (01:42)
[2022-02-21] MEDS: Labetalol HCL 100 MG/20 ML VIAL 10 MG IVPUSH (01:42)
[2022-02-21] MEDS: 0.9 % Sodium Chloride 500 ML IV (02:01)
[2022-02-21 02:18] LABS: Troponin-I High Sensitivity < 3.5 ng/L (<3.5-17.0)
[2022-02-21 03:16] VITALS: BP 119/64; PULSE 68; RESP 20; TEMP 36.6; O2SAT 98
[2022-02-21 08:00] VITALS: BP 140/66; PULSE 86; RESP 20; TEMP 36.6; O2SAT 100
[2022-02-21] MEDS: lisinopriL 5 MG TABLET PO (10:14)
[2022-02-21] MEDS: Aspirin Enteric Coated 81 MG TABLET.DR PO (10:14)
[2022-02-21] MEDS: Cyanocobalamin (Vitamin B-12) 1,000 MCG TABLET 1000 MCG PO (10:14)
[2022-02-21] MEDS: 0.9 % Sodium Chloride Flush 3 ML SYRINGE IVFLUSH (10:15)
[2022-02-21 12:00] VITALS: BP 133/85; PULSE 71; RESP 20; TEMP 36.5; O2SAT 99
--- NOTE | 2022-02-21 15:48 | PM.DS ---
DS: Providers Provider Date of Service: 02/21/22 Date of admission: 02/19/22 23:01 Primary care physician: Conrado Baldwin MD Consults: 02/19/22 23:27 Consult to Neurology Routine Consulting Provider: [facility] Reason for consultation: facial droop, slurred speech Has provider been notified: No 02/20/22 10:18 Consult to Gastroenterology Routine Consulting Provider: Khadra Castillo Reason for consultation: dysphagia Has provider been notified: No DS: Diagnosis Discharge Diagnosis (1) Dysphagia: Status: Acute (2) Paraesophageal hernia: Status: Acute (3) Globus sensation: Status: Acute DS: Summary Hospital Course Hospital Course: History of presenting illness Date of Service: 02/19/22 Chief Complaint: Facial droop, slurring speech This is a 61-year-old female with pertinent history of essential hypertension, mood disorder who presents to the emergency department for evaluation of facial droop and slurring of speech.? Patient states around 815pm while she was lying in bed, her noticed a right-sided facial droop.? 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 She also had slurring of speech.? Both facial droop and slurring of speech lasted for about 45 minutes before resolving.? Patient denies extremity weakness, blurring of vision, headache, jerking movement of extremities, tongue bite, loss of consciousness.? No similar symptoms in the past.? No history of CVA. Patient also complains of progressive worsening dysphagia over the last 2 days.? Patient was evaluated at [facility] for dysphagia and found to have paraesophageal hernia.? She has follow-up in May for upper endoscopy as an outpatient.? Patient states since being discharged from [facility], her dysphagia has worsened. Initially it was only to solids but now she feels she has sensation of both solid and liquids being stuck in her throat. No odynophagia. Has occasional spasms in the throat.? No fever, chills, chest discomfort, palpitations, shortness of breath, abdominal pain, changes in urinary or bowel habits. Hospital course 61-year-old female with pertinent history of essential hypertension, mood disorder who presents to the emergency department for evaluation of facial droop and slurring of speech. 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 ?? Patient seen by Dr. Manley from Neurology he recommend antiplatelet agent, statin and blood pressure control , question cause of underlying significant microangiopathy with normal blood pressure control, normal blood sugars no history of alcohol, therefore anticardiolipin antibody and lupus anticoagulant test send, to find out other causes of significant microangiopathy. ?? #. Dysphagia barium swallow showed mild distal esophagitis, GERD and paraesophageal hernia, recommended outpatient follow-up with Dr. Castillo, for possible upper endoscopy likely symptoms due to anxiety recommend SSRI #. HTN? continue lisinopril 5 mg home dose #. Mood disorder? small dose Sertraline 25 mg recommended by Neurology for symptoms of anxiety.? ? #. Atypical hyperplasia of breast, biopsy proven continue raloxifene. #. Left sided neck swelling is stable likely bilateral connective tissue prominence symmetrical. Time Spent with Patient Time attestation: Total time spent providing and/or coordinating discharge services: Discharge coordination time: Greater than 30 minutes Quality: Safe Use of Opioids Does Pt have an Active Cancer Diagnosis on the Problem List?: No Quality: Stroke Does the patient have a stroke diagnosis?: No Physical Exam Vital Signs: Vital Signs: Last Vital Signs Temp 97.7 F 02/21/22 12:00 Pulse 71 02/21/22 12:00 Resp 20 02/21/22 12:00 BP 133/85 02/21/22 12:00 Pulse Ox 99 02/21/22 12:00 O2 Del Method 02/21/22 12:00 BMI result Body Mass Index 25.7 Const: Other: General awake alert x3, resting comfortably in no acute distress.? Anicteric sclera Neck no JVD. CVS? regular rate rhythm, Respiratory lungs clear to auscultation, no respiratory distress, no wheeze, no rhonchi. Gastrointestinal abdomen soft, nontender, bowel sounds audible, no guarding , no rigidity. Extremities no edema. Neuro awake alert x3, speech clear, no motor deficit no pronator drift. Skin no rash DS: Data Data Completed and Pending Labs on day of discharge: Laboratory Results - last 24 hr 02/21/22 01:51 Troponin I High Sens < 3.5 Discharge Plan Discharge Anticipated Discharge Date/Time: 02/21/22 15:57 Patient Disposition: Home, Self-Care Discharge Diagnosis: Transient neurological deficit resolved Dysphagia Chronic microvascular disease Referrals: Conrado Baldwin MD [Primary Care Provider] - 1 Week Discharge Medications: New aspirin 81 mg Tablet,Delayed Release (Dr/Ec) 81 mg PO DAILY Qty: 30 0RF atorvastatin 40 mg Tablet 40 mg PO DAILY Qty: 30 0RF Continued cyanocobalamin (vitamin B-12) 1,000 mcg Tablet 1,000 mcg PO DAILY lisinopril 5 mg tablet 1 tab PO DAILY omeprazole 20 mg Tablet,Delayed Release (Dr/Ec) 20 mg PO DAILY Discharge Orders: Discharge Order (Routine); Ordered 02/21/22 Ordered By: Jessica Becerril Diet: Low fat, low cholesterol Activity on Discharge: As tolerated Stand Alone Forms: Patient Portal Discharge page Care Plan Goals: Dysphagia likely due to mild distal esophagitis, a small sliding paraesophageal and hiatal hernia, GERD,/globus sensation Noted to have significant microvascular disease of brain recommend to take aspirin, Lipitor Follow-up with primary care physician to consider Zoloft 25 mg daily for anxiety Labs pending are lupus anticoagulant and cardiolipin antibody follow-up with PCP Health Concerns: Take all take all other home medication Plan of Treatment: Outpatient follow-up with primary care physician call for appointment Outpatient follow-up with Dr. Khadra Castillo from Gastroenterology to arrange for outpatient upper endoscopy, call for appointment Assessment: As above
[2022-02-21 16:00] VITALS: BP 145/67; PULSE 78; RESP 18; TEMP 37.1; O2SAT 98
--- NOTE | 2022-02-21 16:00 | MHC.SL.SWA ---
Speech Pathologist Impression: Risk of Aspiration Due to: Neurological Condition Dysphasia Diet Status: Pt's swallowing issues due to esophageal issues (small hiatal and para esophageal hernias, esophagitis, GERD). Motoric aspects of swallow are WFL. Liquid Consistency and Strategies for Safe Swallow: Liquid Intake Recommendation: Thin Liquid Intake Strategies: Unrestricted Solid Food Consistency: Dietary Recommendations: Regular Additional Modifications to Solid Foods: Patient should select foods she feels most comfortable eating. Oral Medication Intake: Whole with Liquid Please contact the pharmacy regarding appropriate crushable or liquid drug formulations that are available whenever modified delivery is recommended. Compensatory Strategies and Precautions to be Taken for Safe Swallow: Sitting Upright (90 deg) Alternate Liquids/Solids Supervision While Eating and Drinking for Safe Swallow: None Needed Foods to Avoid: Swallowing Recommended Treatments: Recommendation for Speech: NA:Typical Evaluation Comment: Patient presents with all aspects of swallow WFL. Patient's swallowing issues likely related to esophageal issues (small hiatal and para esophageal hernias, esophagitis, GERD). Patient is currently undergoing full GI assessment for these issued. Recommend patient continue on current diet of REGULAR with THIN liquids, pills whole with liquid. Patient appears to be informed, aware of foods that are easier to eat and what foods she might avoid (e.g. hard to chew meats). , MAYO notified of recommendations by secure text. As swallow is WFL, will D/C speech at this time. Frequency/Duration: Date Range for Service Req: Timeline to reassess: Can Vacuum Tester Clinican/Clinical Fellow: No Supervisory Statement: I have reviewed and agree with the student/clinical fellow's documentation: N/A Speech Language Pathologist: Juana Rehman M.A., CCC-STRING CUTTER
--- NOTE | 2022-02-21 16:51 | PC.NURSE ---
Alert and oriented. Denies pain, VSS, afebrile, no acute resp. distress noted. NPO for barium swallow, test completed, see results. New order to discharge patient home. Went over discharge instructions, follow up apt and medications administrations with patient, verbalized understanding back. Staff transported to the [facility] via w/c, left via car with her .
[2022-02-24 14:02] LABS: Cardiolipin IgG Ab <2.0 GPL-U/mL; Cardiolipin IgM Ab <2.0 MPL-U/mL
[2022-02-25 17:17] LABS: Hexagonal Phase Neutralization Negative (Negative); PTT (LAC) Screen 48 sec (<=40)
== END 2022-02-21 16:54 | disposition home or self-care (01) | DRG 93 ==
LOC: HO.ED 22:59 → HO.EDOVER 23:16 → HO.IMC 02-20 14:18
PROVIDERS: Admitting Provider Student in an Organized Health Care Education/Training Program; Emergency Provider Emergency Medicine; PCP Internal Medicine; Visit Provider Hospitalist
DX: R29.818 Other symptoms and signs involving the nervous system (principal); I10 Essential (primary) hypertension; F41.9 Anxiety disorder, unspecified; F32.A Depression, unspecified; R29.810 Facial weakness; R13.10 Dysphagia, unspecified; N60.99 Unspecified benign mammary dysplasia of unspecified breast; K44.9 Diaphragmatic hernia without obstruction or gangrene; Z20.822 Contact with and (suspected) exposure to COVID-19; Z88.2 Allergy status to sulfonamides; Z79.899 Other long term (current) drug therapy
CPT/HCPCS: 36415; 70450; 70551; 71045; 74220; 80048; 80061; 82550; 82947; 83036; 84484; 85025; 85597; 85610; 85613; 85730; 86147; 87635; 92610; 93005; 93306; 93880; 99285; J1650; Q9957

== ENCOUNTER 2022-02-27 09:05 | Emergency (ER) | payer OTHER, SELFPAY ==
--- NOTE | 2022-02-27 | ECG_ITS ---
Test Reason : chest pain Blood Pressure : / mmHG Vent. Rate : 083 BPM Atrial Rate : 083 BPM P-R Int : 112 ms QRS Dur : 078 ms QT Int : 366 ms P-R-T Axes : 062 049 051 degrees QTc Int : 430 ms Normal sinus rhythm Normal ECG When compared with ECG of 21-FEB-2022 01:36, No significant change was found Referred By: Generic ED Physician Electronically Signed By:ALDA COBB MD
--- NOTE | ~2022-02-27 | XR_ITS ---
EXAMINATION: XR CHEST CLINICAL INFORMATION: Chest pain. COMPARISON: 02/19/2022 chest radiograph. TECHNIQUE: 2 views of the chest were obtained. FINDINGS: No significant abnormality is noted involving the heart, lungs, mediastinum, bony thorax or soft tissues. XR/XR chest 2V IMPRESSION: No acute cardiopulmonary process.
[2022-02-27 09:08] VITALS: BP 153/86; PULSE 90; RESP 20; TEMP 36.1; O2SAT 100; BMI 25.7
[2022-02-27 09:30] LABS: MANUAL DIFF FLAG NO
[2022-02-27 09:45] LABS: Basophils Percent Auto 0.5 % (0-2); Eosinophils Percent Auto 1.1 % (0-4); Hematocrit 38.9 % (37.0-47.0); Hemoglobin 13.6 g/dl (12.0-16.0); Imm Gran Abs Auto 0.02 X10*3/uL (0.00-0.03); Imm Gran Pct Auto 0.5 % (0.0-0.4); Lymphocytes Absolute Auto 1.5 X10*3/uL (1.2-4.9); Lymphocytes Percent Auto 38.6 % (20-40); Mean Corpuscular Hemoglobin 30.4 pg (27.0-33.0); Monocytes Absolute Auto 0.3 X10*3/uL (0.1-1.2); Monocytes Percent Auto 6.9 % (2-11); Neutrophils Percent Auto 52.4 % (45-73); Platelet Count 308 X10*3/uL (160-400); Red Blood Count 4.47 X10*6/uL (4.20-5.50); Red Cell Distribution Width 11.5 % (11.0-16.0); White Blood Count 3.8 X10*3/uL (4.8-10.8)
[2022-02-27 09:55] LABS: Alanine Aminotransferase 14 U/L (0-31); Albumin Level 4.1 g/dL (3.5-5.0); Alkaline Phosphatase 69 U/L (39-117); Anion Gap 12 (12-20); Aspartate Amino Transferase 10 U/L (5-31); Bilirubin Total 0.7 mg/dL (0.0-1.0); Blood Urea Nitrogen 9 mg/dL (9-16); Calcium 9.1 mg/dL (8.4-10.2); Carbon Dioxide 22 mmol/L (22-29); Chloride 109 mmol/L (96-108); Creatinine Clr Calc Pharmacy 57.7; Estimated Glomerular Filt Rate 58; Glucose Random 107 mg/dL (60-115); Sodium 139 mmol/L (135-145); Total Protein 6.7 g/dL (6.5-8.0)
[2022-02-27] MEDS: LORazepam 1 MG TABLET PO (11:24)
--- NOTE | 2022-02-27 11:44 | ED_ITS ---
HPI - General Adult General Chief complaint: General Medical Stated complaint: chest pain Time Seen by Provider: 02/27/22 11:43 Source: patient and family Limitations: no limitations History of Present Illness HPI narrative: 61-year-old female presents to the ER with has been complaining of painful swallowing and an episode of chest pain after taking her medications this morning. Symptoms are [id number] and patient states she be and feel very anxious very concerned what was causing the symptoms. Patient had a recent admission to the hospital from February 19 to had a recent follow-up at her PCP on Thursday. At that time she was evaluated by Neurology, Gastroenterology and the medicine team. Patient had multiple tests at that time an MRI showed microvascular disease but no reason for her difficulty with speech or facial flatness. Patient also had a barium swallow done by GI that showed normal motility with some concerns for paraesophageal hernia and mild reflux and esophagitis. A duplex ultrasound was done of her cries which was negative. Patient was sent home and started on sertraline to help with some anxiety that was recommended by Neurology. Patient is tearful and very concerned with what is going on with her. At this time patient has some nausea but no vomiting. The pain in her chest has resolved. Related Data Home Medications Medication Instructions Recorded Confirmed cyanocobalamin (vitamin B-12) 1,000 mcg PO DAILY 02/20/22 02/20/22 1,000 mcg tablet lisinopril 5 mg tablet 1 tab PO DAILY 02/20/22 02/20/22 omeprazole 20 mg tablet,delayed 20 mg PO DAILY 02/20/22 02/20/22 release Previous Rx's Medication Instructions Recorded aspirin 81 mg tablet,delayed 81 mg PO DAILY #30 tabs 02/21/22 release atorvastatin 40 mg tablet 40 mg PO DAILY #30 tabs 02/21/22 hydroxyzine HCl 25 mg tablet 50 mg PO BEDTIME PRN sleep #20 tabs 02/27/22 Allergies Allergy/AdvReac Type Severity Reaction Status Date / Time sulfamethoxazole Allergy Intermediate rash Verified 02/19/22 21:41 [From Bactrim] trimethoprim [From Bactrim] Allergy Intermediate rash Verified 02/19/22 21:41 Review of Systems Constitutional: Constitutional: Denies chills, Denies fever(s) and Denies headache(s) Eyes: Eyes: Denies diplopia and Denies loss of vision ENT: Reports dysphagia, Denies dry mouth, Denies facial pain, Denies headache(s), Denies hoarseness, Reports odynophagia and Denies sore throat Cardiovascular: Cardiovascular: Reports chest pain (Resolved), Denies epigastric discomfort, Denies lightheadedness and Denies dyspnea Respiratory: Respiratory: Denies cough, Denies pain with cough and Denies dyspnea Gastrointestinal: Gastrointestinal: Reports dysphagia, Reports nausea, Reports odynophagia and Denies vomiting Genitourinary: Genitourinary: Reports no additional female genitourinary complaints Musculoskeletal: Musculoskeletal: Denies back pain and Denies muscle weakness Neurologic: Denies Abnormal speech present, Denies headache(s), Denies loss of vision and Denies convulsions Endocrine: Endocrine: Reports no additional endocrine complaints [facility] Past Medical History Medical History Atypical hyperplasia of breast Essential hypertension Mood disorder Paraesophageal hernia Social History Social History Household Members: Spouse Housing: House Do you presently have visiting nurse or other home services: No Alcohol intake: current Alcohol intake frequency: holidays/special occasions only Alcohol type: wine Patient Tobacco Use Status: Never used Tobacco Advance Directives: Yes Advance Directives on File: Yes Advance Directives Date on File: 02/20/22 service: No Current occupational status: retired Physical Exam ED Vital Signs: Vital Signs - 24 hr 02/27/22 09:08 Temperature 97.0 F Pulse Rate 90 Respiratory Rate 20 Blood Pressure 153/86 H Pulse Oximetry 100 Oxygen Delivery Method Room Air BMI result Body Mass Index 25.7 vital signs have been reviewed as normal and appeared to be correct. Blood pressure normal. Heart rate normal. Respiration rate normal. Temperature normal. Oxygen saturation normal. Appearance: Patient is alert oriented feeling very anxious and tearful. Head: Normal external exam. Normocephalic. Atraumatic. Eyes: PERRLA. EOMI. Conjunctiva and sclera normal. Eyelids normal. ENT: Oropharynx is clear no trismus no drooling uvula is midline no stridor airway is patent mucosa is moist Neck: Soft full range of motion, no JVD CVS: Heart regular rate and rhythm no murmurs and rubs, no chest wall tenderness on palpation Respiratory: Breath sounds are clear to auscultation bilaterally. No accessory muscle use noted. Abdomen: Soft nontender no rebound or guarding positive bowel sounds Back: Full range of motion of back. Skin: Skin warm and dry. Normal skin color. Normal skin turgor. No rashes/lesions/lacerations noted. Extremities: No lower extremity edema. Extremities exhibit normal range of motion. Extremities nontender. Neuro: Oriented X 3. No motor deficit. No sensory deficit. Reflexes normal. Neuro Speech: No Abnormal speech present Course Course Course Narrative: Anxiety Chest wall pain ACS less likely Reflux disease Esophagitis Six hundred twenty 8-year-old female with extensive medical history and recent hospital admission with extensive workup for facial droop speech difficulty swallowing. Patient was seen by multiple consultants. Patient also seen by mary lou gomez on Thursday he decided that they would wait to to do an endoscopy till other symptoms resolved. While in the hospital she had a barium swallow that showed normal motility on some esophagitis signs and a small paraesophageal hernia. Patient was also evaluated by Neuro MRI showed microvascular disease but the MRI did not explain her neurological findings on exam at that time. Patient also was seen by the hospitalist team. Duplex carotids were negative echo was 50-65% EF and normal wall function and no diastolic dysfunction. On discharge patient was started on sertraline for anxiety recommended by Neuro. Patient received 1 mg Ativan by triage is minimal to no relief at this time. Current labs are pending will check troponin chest x-ray at this time 50 mg hydroxyzine p.o. Lab work is unremarkable troponin is flat. EKG is sinus rhythm at a rate of [address] elevation similar to previous ECG. Very low suspicion for cardiac causes of this pain. 13:16 Symptoms have resolved patient feels well will have follow-up with PCP and specialist. Will start patient on hydroxyzine at this time. Case discussed at length with patient and family. Medications Administered Discontinued Medications Generic Name Dose Route Start Last Admin Trade Name Piterq PRN Reason Stop Dose Admin Hydroxyzine HCl 50 mg 02/27/22 12:07 02/27/22 12:31 Hydroxyzine Hcl 50 Mg Tablet PO 02/27/22 12:08 50 mg ONCE ONE Administration Lorazepam 1 mg 02/27/22 11:19 02/27/22 11:24 Lorazepam 1 Mg Tablet PO 02/27/22 11:20 1 mg ONCE ONE Administration Medical Decision Making Lab Data Result diagrams: 02/27/22 09:21 02/27/22 09:21 Labs: Lab Results 02/27/22 02/27/22 02/27/22 Range/Units 09:21 09:21 09:21 WBC 3.8 L (4.8-10.8) X10*3/uL RBC 4.47 (4.20-5.50) X10*6/uL Hgb 13.6 (12.0-16.0) g/dl Hct 38.9 (37.0-47.0) % MCV 87.0 (80.0-98.0) fL MCH 30.4 (27.0-33.0) pg MCHC 35.0 (31.0-35.0) g/dl RDW 11.5 (11.0-16.0) % Plt Count 308 D (160-400) X10*3/uL MPV 10.0 (9.4-12.3) fL Immature Gran % (Auto) 0.5 H (0.0-0.4) % Neut % (Auto) 52.4 (45-73) % Lymph % (Auto) 38.6 (20-40) % Reynolds % (Auto) 6.9 (2-11) % Eos % (Auto) 1.1 (0-4) % Baso % (Auto) 0.5 (0-2) % Lymph # (Auto) 1.5 (1.2-4.9) X10*3/uL Reynolds # (Auto) 0.3 (0.1-1.2) X10*3/uL Eos # (Auto) 0.0 (0.0-0.4) X10*3/uL Baso # (Auto) 0.0 (0.0-0.2) X10*3/uL Abs Immat Gran (auto) 0.02 (0.00-0.03) X10*3/uL Absolute Neuts (auto) 2.0 (2.0-8.3) x10*3/uL Absolute Nucleated RBC 0.000 (0.0-0.012) X10*3/uL Nucleated RBC % (auto) 0.0 (0.0-0.2) /100WBC Sodium 139 (135-145) mmol/L Potassium 4.0 (3.3-5.1) mmol/L Chloride 109 H (96-108) mmol/L Carbon Dioxide 22 (22-29) mmol/L Anion Gap 12 (12-20) BUN 9 (9-16) mg/dL Creatinine 0.97 (0.5-1.4) mg/dL Estim Creat Clear Calc 57.7 Estimated GFR 58 Random Glucose 107 (60-115) mg/dL Calcium 9.1 (8.4-10.2) mg/dL Magnesium 2.0 (1.6-2.6) mg/dL Total Bilirubin 0.7 (0.0-1.0) mg/dL AST 10 (5-31) U/L ALT 14 (0-31) U/L Alkaline Phosphatase 69 (39-117) U/L Troponin I High Sens < 3.5 (<3.5-17.0) ng/L Total Protein 6.7 (6.5-8.0) g/dL Albumin 4.1 (3.5-5.0) g/dL Imaging Data Chest x-ray: Radiologist's impression: ? Chart Viewer Orders Diagnostics Subcategory All Activity ??:?? All Time ??:?? All Subcategories Filter Laboratory Imaging Microbiology Pathology Blood Bank Tests Cardiovascular Other Specialty DATE TYPE STATUS REF RANGE/AUTHOR Hx Today 12:17 Chest X-Ray Signed Cholo Martinez 02/21/22 09:45 Barium Swallow X-Ray Signed Tran Langley 02/20/22 09:45 Carotid Doppler Study Signed Radha Wright 02/20/22 09:26 Brain MRI Signed Chema Galeas 02/19/22 22:15 Chest X-Ray Signed Edson Cason 02/19/22 21:[address] Signed Sinan Singh Kathleen M ED 61, F?1960 MRN#? [id number] REG ER,?Emergency Minor Care??[facility] Bed 4?-EMC4? 5ft 4in 68.039kg BMI: 25.7kg/m? General Medical Acc#? [id number] Resus Status Not Ordered Hx Avail Allergies sulfamethoxazole (From Bactrim) rash trimethoprim (From Bactrim) rash Problems ? ONSET Globus sensation Anxiety disorder Cerebral microvascular disease Dysphagia Paraesophageal hernia Essential hypertension Mood disorder Atypical hyperplasia of breast Transient cerebral ischemia Home Meds Not Confirmed Prescription Monitoring Program MEDICATIONS (INSTRUCTIONS) LAST TAKEN Active ??aspirin ??81 mgPODAILY#30 tabs ??atorvastatin ??40 mgPODAILY#30 tabs ??cyanocobalamin (vitamin B-12) ??1,000 mcgPODAILY ??lisinopril ??1 tabPODAILY ??omeprazole ??20 mgPODAILY Triage Note pt reports tight facial muscles s/p dc from the [facility] for r/o tia pt reports being very anxious for the past couple of days. months of increasing difficulty swallowing. worse today. ED EMS Hand-Off No Data to Display Orders Snapshot DISCONTINUED MEDICATIONS LORazepam [Ativan]1mgPOONCEONE Discontinued hydrOXYzine HCL [Atarax]50mgPOONCEONE Discontinued CARDIOLOGY SERVICES ECG 12 lead EKG Stat Draft CARE EKG Documentation DIRECTED Completed IMAGING AND XRAYS XR chest 2V Stat Completed LABORATORY CBC W/AUTO DIFF [Complete Blood Count Auto Diff] Stat Abnormal CMP [Comprehensive Met. Panel] Stat Abnormal Add Laboratory Test Stat Completed Magnesium Stat 2.0 mg/dL (1.6-2.6) Add Laboratory Test Stat Ordered Troponin-I High Sensitivity Routine < 3.5 ng/L (<3.5-17.0)? My Widget No Data to Display Lab Results Last 24 Hrs Most Recent Hematology WBC (4.8-10.8) 3.8 X10*3/uL L Today 09:21 RBC (4.20-5.50) 4.47 X10*6/uL Today 09:21 Hgb (12.0-16.0) 13.6 g/dl Today 09:21 Hct (37.0-47.0) 38.9 % Today 09:21 MCV (80.0-98.0) 87.0 fL Today 09:21 MCH (27.0-33.0) 30.4 pg Today 09:21 MCHC (31.0-35.0) 35.0 g/dl Today 09:21 RDW (11.0-16.0) 11.5 % Today 09:21 Plt Count (160-400) 308 X10*3/uL??? Today 09:21 MPV (9.4-12.3) 10.0 fL Today 09:21 Immature Gran % (Auto) (0.0-0.4) 0.5 % H Today 09:21 Neut % (Auto) (45-73) 52.4 % Today 09:21 Lymph % (Auto) (20-40) 38.6 % Today 09:21 Reynolds % (Auto) (2-11) 6.9 % Today 09:21 Eos % (Auto) (0-4) 1.1 % Today 09:21 Baso % (Auto) (0-2) 0.5 % Today 09:21 Lymph # (Auto) (1.2-4.9) 1.5 X10*3/uL Today 09:21 Reynolds # (Auto) (0.1-1.2) 0.3 X10*3/uL Today 09:21 Eos # (Auto) (0.0-0.4) 0.0 X10*3/uL Today 09:21 Baso # (Auto) (0.0-0.2) 0.0 X10*3/uL Today 09:21 Abs Immat Gran (auto) (0.00-0.03) 0.02 X10*3/uL Today 09:21 Absolute Neuts (auto) (2.0-8.3) 2.0 x10*3/uL Today 09:21 Absolute Nucleated RBC (0.0-0.012) 0.000 X10*3/uL Today 09:21 Nucleated RBC % (auto) (0.0-0.2) 0.0 /100WBC Today 09:21 Chemistry Sodium (135-145) 139 mmol/L Today 09:21 Potassium (3.3-5.1) 4.0 mmol/L Today 09:21 Chloride (96-108) 109 mmol/L H Today 09:21 Carbon Dioxide (22-29) 22 mmol/L Today 09:21 Anion Gap (12-20) 12 Today 09:21 BUN (9-16) 9 mg/dL Today 09:21 Creatinine (0.5-1.4) 0.97 mg/dL Today 09:21 Estim Creat Clear Calc 57.7? Today 09:21 Estimated GFR 58? Today 09:21 Random Glucose (60-115) 107 mg/dL Today 09:21 Calcium (8.4-10.2) 9.1 mg/dL Today 09:21 Magnesium (1.6-2.6) 2.0 mg/dL Today 09:21 Total Bilirubin (0.0-1.0) 0.7 mg/dL Today 09:21 AST (5-31) 10 U/L Today 09:21 ALT (0-31) 14 U/L Today 09:21 Alkaline Phosphatase (39-117) 69 U/L Today 09:21 Troponin I High Sens (<3.5-17.0) < 3.5 ng/L Today 09:21 Total Protein (6.5-8.0) 6.7 g/dL Today 09:21 Albumin (3.5-5.0) 4.1 g/dL Today 09:21 Diagnostic Imaging Reports Chest X-Ray Signed Today Diagnostic Departmental Reports CARDIOVASCULAR Electrocardiogram Draft Today Vitals - Initial & Most Recent CURRENT Today 09:08 BP 153/86 H Pulse 90 Resp 20 Temp 97.0 F O2 Sat 100 O2 Delivery Room Air Diagnostics Reports Rosaura Barboza??61??F??1960 ? Allergy/Adv: sulfamethoxazole, trimethoprim (More??) Close Chest X-Ray (Signed) JuanCholo - 02/27/22 Barium Swallow X-Ray (Signed) Tran Langley - 02/21/22 Carotid Doppler Study (Signed) Radha Wright - 02/20/22 Brain MRI (Signed) Chema Galeas - 02/20/22 Chest X-Ray (Signed) Edson Cason - 02/19/[address] (Signed) Sinan Singh - 02/19/22 Launch?Image [place] [id number] XRay Report Signed Patient: Rosaura Barboza MR#: [id number] : 1960 Acct:[id number] Age/Sex: 61 / F ADM Date: 02/27/22 Loc: HO.ED Attending Dr: Ordering Physician: Santo Hoang Date of Service: 02/27/22 Procedure(s): XR chest 2V Accession Number(s): [id number] cc: Santo Hoang ~ EXAMINATION: XR CHEST CLINICAL INFORMATION: Chest pain. COMPARISON: 02/19/2022 chest radiograph. TECHNIQUE: 2 views of the chest were obtained. FINDINGS: No significant abnormality is noted involving the heart, lungs, mediastinum, bony thorax or soft tissues. XR/XR chest 2V IMPRESSION: No acute cardiopulmonary process. Dictated By: Cholo Martinez MD Signed By: <Electronically signed by Cholo Martinez MD in OV> 02/27/22 1258 DD/ 1217 TD/TT:? Funeral Home Manager: GR Discharge Plan Discharge Clinical Impression: Anxiety, Chest pain Patient Disposition: Home, Self-Care Instructions: Chest Pain (ED), Anxiety (ED) Prescriptions: New hydroxyzine HCl 25 mg tablet 50 mg PO BEDTIME PRN (Reason: sleep) Qty: 20 0RF No Action cyanocobalamin (vitamin B-12) 1,000 mcg Tablet 1,000 mcg PO DAILY lisinopril 5 mg tablet 1 tab PO DAILY omeprazole 20 mg Tablet,Delayed Release (Dr/Ec) 20 mg PO DAILY atorvastatin 40 mg Tablet 40 mg PO DAILY Qty: 30 0RF aspirin 81 mg Tablet,Delayed Release (Dr/Ec) 81 mg PO DAILY Qty: 30 0RF
[2022-02-27 12:22] LABS: Troponin-I High Sensitivity < 3.5 ng/L (<3.5-17.0)
[2022-02-27] MEDS: hydrOXYzine HCL 50 MG TABLET PO (12:31)
[2022-02-27 13:29] VITALS: BP 149/90; PULSE 88; RESP 17; O2SAT 99
== END 2022-02-27 13:34 | disposition home or self-care (01) ==
PROVIDERS: Physician Assistant; Emergency Provider Emergency Medicine Emergency Medical Services; PCP Internal Medicine
DX: R07.89 Other chest pain (principal); R13.10 Dysphagia, unspecified; F41.1 Generalized anxiety disorder; F43.0 Acute stress reaction; Z79.899 Other long term (current) drug therapy
CPT/HCPCS: 36415; 71046; 80053; 83735; 84484; 85025; 93005; 99283